=== PATIENT | male | born 1985 | race Caucasian/White ===

== ENCOUNTER 2020-06-22 23:49 | Inpatient (IN) | payer OTHER, SELFPAY ==
[2020-06-22 23:56] VITALS: BP 104/54; BP 120/66; PULSE 100; PULSE 89; RESP 20; TEMP 36.8; O2SAT 100; O2SAT 98; BMI 15.7
[2020-06-23] VITALS (22 sets, daily range): BP systolic 106–133; BP diastolic 59–76; PULSE 60–115; RESP 16–20; TEMP 36.4–37.2; O2SAT 97–100
--- NOTE | 2020-06-23 | ED.ABDPAIN ---
HPI - Abdominal Pain General Chief Complaint: Abdominal Pain Stated Complaint: abdominal pain Time Seen by Provider: 06/22/20 23:52 Source: patient and EMS Mode of arrival: EMS Limitations: no limitations History of Present Illness MD elicited complaint: abdominal pain Onset (ago): day(s) (3) Pain Consistency: constant Location: epigastric Severity: severe Quality: stabbing, fullness and sharp Radiation: none and epigastric Migration to: no migration Exacerbating factors: vomiting and movement Relieving factors: nothing Associated symptoms: nausea and vomiting Related Data Allergies Allergy/AdvReac Type Severity Reaction Status Date / Time No Known Allergies Allergy Unverified 03/06/20 17:11 Review of Systems Review of Systems Constitutional : No Weight loss, No Fever, No Chills ENT/Mouth : No sore throat, No Rhinorrhea Eyes: No Swelling, No Redness Cardiovascular : No Chest Pain, No SOB, NoEdema Respiratory : No Cough, No Sputum, No Wheezing Gastrointestinal : Positive Nausea, Positive Vomiting, no Diarrhea, positive abdominal Pain, No Hematochezia, No Melena Genitourinary : No Dysuria, No Urinary Frequency, No Hematuria, No Urgency Musculoskeletal : No joint pain, No Myalgias, No Joint Swelling Skin : No Skin Lesions, No rash Neuro : No Weakness, No Numbness, No Dizziness, No Headache Psych : No Anxiety/Panic, No Depression Heme/Lymph: No Bruising, No Lymphadenopathy Endocrine : No Polyuria, No Polydipsia All other systems reviewed and are negative. Physical Exam Vital Signs: Vital Signs: Last Vital Signs Temp 98.3 F 06/22/20 23:56 Pulse 89 06/22/20 23:56 Resp 20 06/22/20 23:56 BP 120/66 06/22/20 23:56 Pulse Ox 98 06/22/20 23:56 Body Mass Index 15.7 Appearance: Alert. Oriented X3. No acute distress. Anxious Eyes: Pupils equal, round and reactive to light. ENT: Pharynx normal. Neck: Normal inspection. Neck supple. CVS: Normal heart rate and rhythm. Pulses normal. Respiratory: No respiratory distress. Breath sounds normal. Abdomen: Soft and moderate epigastric ttp no rebound or guarding Skin: Skin warm and dry. Normal skin color. Normal skin turgor. Extremities: No lower extremity edema. No calf ttp Neuro: Oriented X 3. No motor deficit. No sensory deficit. Course Course Course Narrative: given his degree of pain will obtain CT scan to evaluate pancreas/GB signed out to Dr. Bolton pending CT scan results MDM - Abdominal Pain MDM Narrative Medical decision making narrative: 35 yo male with worsening epigastric pain for 3 days with n/v likely gastritis will need labs, IVF, IV medications for pain and nausea, dispo per results and findings. Lab Data Result diagrams: 06/23/20 00:06 06/23/20 00:06 Labs: Lab Results 06/23/20 06/23/20 06/23/20 Range/Units 00:06 00:06 00:06 WBC 10.2 (4.8-10.8) X10*3/uL RBC 4.51 L (4.60-5.80) X10*6/uL Hgb 14.5 (14.0-18.0) g/dl Hct 43.3 (42-52) % MCV 96.0 (80-98) fL MCH 32.2 (27.0-33.0) pg MCHC 33.5 (31.0-36.0) g/dl RDW 12.3 (11.0-16.0) % Plt Count 247 (160-400) X10*3/uL MPV 10.0 (9.4-12.4) fL Immature Gran % (Auto) 0.2 (0.0-0.4) % Neut % (Auto) 70.3 (45-73) % Lymph % (Auto) 23.2 (20-40) % [place] % (Auto) 4.8 (2-11) % Eos % (Auto) 1.2 (0-4) % Baso % (Auto) 0.3 (0-2) % Lymph # (Auto) 2.4 (1.2-4.9) X10*3/uL [place] # (Auto) 0.5 (0.1-1.2) X10*3/uL Eos # (Auto) 0.1 (0.0-0.4) X10*3/uL Baso # (Auto) 0.0 (0.0-0.2) X10*3/uL Abs Immat Gran (auto) 0.02 (0.00-0.03) X10*3/uL Absolute Neuts (auto) 7.1 (2.0-8.3) X10*3/uL Absolute Nucleated RBC 0.000 (0.0-0.012) X10*3/uL Nucleated RBC % (auto) 0.0 (0.0-0.2) /100WBC Hold Blue Top SEE NOTE Sodium 140 (135-145) mmol/L Potassium 3.5 (3.3-5.1) mmol/l Chloride 103 (96-108) mmol/L Carbon Dioxide 25 (22-29) mmol/L Anion Gap 16 (12-20) BUN 12 (9-16) mg/dL Creatinine 0.84 (0.5-1.4) mg/dL Estim Creat Clear Calc 103.8 Estimated GFR > 60 Random Glucose 88 (60-115) mg/dL Calcium 8.4 (8.4-10.2) mg/dL Magnesium 1.8 (1.6-2.6) mg/dL Total Bilirubin 0.5 (0.0-1.0) mg/dL Direct Bilirubin 0.3 (0.0-0.5) mg/dL AST 15 (5-37) U/L ALT 21 (0-40) U/L Alkaline Phosphatase 67 (39-117) U/L Total Protein 6.5 (6.5-8.0) g/dL Albumin 4.0 (3.5-5.0) g/dL Lipase 34 (8-78) U/L Ethyl Alcohol mg/dL 06/23/20 Range/Units 00:06 WBC (4.8-10.8) X10*3/uL RBC (4.60-5.80) X10*6/uL Hgb (14.0-18.0) g/dl Hct (42-52) % MCV (80-98) fL MCH (27.0-33.0) pg MCHC (31.0-36.0) g/dl RDW (11.0-16.0) % Plt Count (160-400) X10*3/uL MPV (9.4-12.4) fL Immature Gran % (Auto) (0.0-0.4) % Neut % (Auto) (45-73) % Lymph % (Auto) (20-40) % [place] % (Auto) (2-11) % Eos % (Auto) (0-4) % Baso % (Auto) (0-2) % Lymph # (Auto) (1.2-4.9) X10*3/uL [place] # (Auto) (0.1-1.2) X10*3/uL Eos # (Auto) (0.0-0.4) X10*3/uL Baso # (Auto) (0.0-0.2) X10*3/uL Abs Immat Gran (auto) (0.00-0.03) X10*3/uL Absolute Neuts (auto) (2.0-8.3) X10*3/uL Absolute Nucleated RBC (0.0-0.012) X10*3/uL Nucleated RBC % (auto) (0.0-0.2) /100WBC Hold Blue Top Sodium (135-145) mmol/L Potassium (3.3-5.1) mmol/l Chloride (96-108) mmol/L Carbon Dioxide (22-29) mmol/L Anion Gap (12-20) BUN (9-16) mg/dL Creatinine (0.5-1.4) mg/dL Estim Creat Clear Calc Estimated GFR Random Glucose (60-115) mg/dL Calcium (8.4-10.2) mg/dL Magnesium (1.6-2.6) mg/dL Total Bilirubin (0.0-1.0) mg/dL Direct Bilirubin (0.0-0.5) mg/dL AST (5-37) U/L ALT (0-40) U/L Alkaline Phosphatase (39-117) U/L Total Protein (6.5-8.0) g/dL Albumin (3.5-5.0) g/dL Lipase (8-78) U/L Ethyl Alcohol 105 mg/dL Discharge Plan Discharge Clinical Impression: Abdominal pain Qualifiers: Abdominal location: epigastric Qualified Code(s): R10.13 - Epigastric pain [facility] Past Medical History Attestation statement: The following information was validated with the patient. Medical History Kidney stone Social History Social History (Updated 06/23/20 @ 00:05 by Idania Kim DO) Smoking Status: Current some day smoker Substance Use Type: Marijuana Advance Directives: No Advance Directives Information Provided: No
[2020-06-23 00:22] LABS: Basophils Percent Auto 0.3 % (0-2); Eosinophils Absolute Auto 0.1 X10*3/uL (0.0-0.4); Eosinophils Percent Auto 1.2 % (0-4); Hematocrit 43.3 % (42-52); Hemoglobin 14.5 g/dl (14.0-18.0); Imm Gran Abs Auto 0.02 X10*3/uL (0.00-0.03); Imm Gran Pct Auto 0.2 % (0.0-0.4); Lymphocytes Absolute Auto 2.4 X10*3/uL (1.2-4.9); Lymphocytes Percent Auto 23.2 % (20-40); Mean Corpuscular HGB Conc 33.5 g/dl (31.0-36.0); Mean Corpuscular Hemoglobin 32.2 pg (27.0-33.0); Monocytes Absolute Auto 0.5 X10*3/uL (0.1-1.2); Monocytes Percent Auto 4.8 % (2-11); Neutrophils Absolute Auto 7.1 X10*3/uL (2.0-8.3); Neutrophils Percent Auto 70.3 % (45-73); Platelet Count 247 X10*3/uL (160-400); Red Blood Count 4.51 X10*6/uL (4.60-5.80); Red Cell Distribution Width 12.3 % (11.0-16.0); White Blood Count 10.2 X10*3/uL (4.8-10.8)
[2020-06-23 00:25] LABS: MANUAL DIFF FLAG NO
[2020-06-23] MEDS: 0.9 % Sodium Chloride 1,000 ML 999 ML IVCONT ×2 (00:25→03:39)
[2020-06-23] MEDS: Ketorolac Tromethamine 30 MG/ML VIAL IVPUSH (00:25)
[2020-06-23] MEDS: diphenhydrAMINE HCL 50 MG/ML VIAL 25 MG IVPUSH (00:26)
[2020-06-23] MEDS: Metoclopramide HCl 10 MG/2 ML VIAL IVPUSH (00:26)
--- NOTE | 2020-06-23 00:31 | CT_ITS ---
EXAMINATION: CT ABDOMEN AND PELVIS WITH CONTRAST CLINICAL INFORMATION: Epigastric pain COMPARISON: None TECHNIQUE: Multidetector volumetric images were obtained from the superior aspect of the liver through the pubic symphysis following administration 85 mL of Omnipaque 350 intravenous contrast. Sagittal and coronal reformatted images were obtained on the technologist's workstation. Oral contrast: No This CT examination was performed using dose optimization techniques as appropriate, variously including the following: *Automated exposure control *Adjustment of mA and/or kV according to patient size (this includes techniques or standardized protocols for targeted exams where dose is matched to indication/reason for exam; i.e. extremities or head) *Use of iterative reconstruction technique DLP: 342 mGy-cm FINDINGS: LUNG BASES: The visualized lung bases are unremarkable. LIVER, GALLBLADDER, AND BILIARY TREE: The liver is normal in size, shape, and attenuation. No focal hepatic lesion or biliary ductal dilatation is present. The gallbladder is unremarkable with no evidence of radiopaque gallstones, gallbladder wall thickening, or obvious pericholecystic inflammatory changes. PANCREAS: Unremarkable. SPLEEN: Unremarkable. ADRENAL GLANDS: Unremarkable. KIDNEYS AND URETERS: The kidneys are normal in size, shape, and attenuation. No hydronephrosis, hydroureter, or calculi seen. No perinephric stranding. BLADDER: Unremarkable. GASTROINTESTINAL TRACT: Lack of intra-abdominal fat limits evaluation of the bowel. The stomach is normally distended without wall thickening. Normal caliber small bowel. There is no obstruction. There is no colonic wall thickening or acute inflammatory change. The appendix is not definitively seen. Possible gas within normal appendix on series 3 image 66. There is a small amount of free intraperitoneal air noted. This is of uncertain etiology. Small volume of pelvic free fluid. ABDOMINAL WALL: No significant hernia is appreciated. LYMPH NODES: Normal. VASCULAR: Unremarkable. PELVIC VISCERA: The prostate and seminal vesicles are unremarkable. OSSEOUS STRUCTURES: Disc space narrowing of L4-L5 with vacuum disc phenomenon. No acute abnormality. CT/CT abdomen pelvis w con IMPRESSION: Small amount of free intraperitoneal air. This is of unclear etiology. Small volume of pelvic free fluid. This critical result was discussed with Dr. Bolton by telephone at 06/23/2020 2:31 AM and it was ascertained that the content and urgency of the report was understood at the time of direct communication.
[2020-06-23 00:52] LABS: Ethanol 105 mg/dL
[2020-06-23 00:54] LABS: Alanine Aminotransferase 21 U/L (0-40); Alkaline Phosphatase 67 U/L (39-117); Aspartate Amino Transferase 15 U/L (5-37); Bilirubin Direct 0.3 mg/dL (0.0-0.5); Bilirubin Total 0.5 mg/dL (0.0-1.0); Lipase 34 U/L (8-78); Magnesium 1.8 mg/dL (1.6-2.6); Total Protein 6.5 g/dL (6.5-8.0)
[2020-06-23 01:10] LABS: Anion Gap 16 (12-20); Blood Urea Nitrogen 12 mg/dL (9-16); Calcium 8.4 mg/dL (8.4-10.2); Carbon Dioxide 25 mmol/L (22-29); Chloride 103 mmol/L (96-108); Creatinine Clr Calc Pharmacy 103.8; Estimated Glomerular Filt Rate > 60; Glucose Random 88 mg/dL (60-115); Potassium 3.5 mmol/l (3.3-5.1); Sodium 140 mmol/L (135-145)
[2020-06-23] MEDS: iohexoL 350 MG/ML 100 ML INFUS..BTL 85 ML IV (01:50)
--- NOTE | 2020-06-23 02:38 | PC.NURSE ---
CALL OUT TO FLOOR SCRUBBER SERVICE TO DR LLANOS
--- NOTE | 2020-06-23 02:42 | ED.ABDPAIN ---
HPI - Abdominal Pain General Chief Complaint: Abdominal Pain Stated Complaint: abdominal pain Time Seen by Provider: 06/22/20 23:52 Source: patient and EMS Mode of arrival: EMS Limitations: no limitations History of Present Illness MD elicited complaint: abdominal pain Severity: severe Quality: stabbing, fullness and sharp Migration to: no migration Exacerbating factors: vomiting and movement Relieving factors: nothing Associated symptoms: nausea and vomiting Related Data Allergies Allergy/AdvReac Type Severity Reaction Status Date / Time No Known Allergies Allergy Unverified 03/06/20 17:11 Physical Exam Vital Signs: Vital Signs: Last Vital Signs Temp 98.3 F 06/22/20 23:56 Pulse 89 06/22/20 23:56 Resp 20 06/22/20 23:56 BP 120/66 06/22/20 23:56 Pulse Ox 98 06/22/20 23:56 Body Mass Index 15.7 Course Reevaluation(s) Reevaluation #1: Since [address] Real been called 2 times by the service no answer sent [employer] 2 times prior the message no response Time: 03:05 Reevaluation #2: Spoke to Dr. Hutchins will take the patient to OR for laparotomy to find out the cause of free air Time: 03:11 MDM - Abdominal Pain MDM Narrative Medical decision making narrative: Patient with abdominal pain for last 3 days with no history of peptic ulcer disease or any acute abdominal pathology pain got worse prior to arrival mostly localized in the upper abdomen labs are stable case discussed with radiologist CT scan showed small amount of free air etiology not very clear. Will call surgeon for evaluation Lab Data Result diagrams: 06/23/20 00:06 06/23/20 00:06 Labs: Lab Results 06/23/20 06/23/20 06/23/20 Range/Units 00:06 00:06 00:06 WBC 10.2 (4.8-10.8) X10*3/uL RBC 4.51 L (4.60-5.80) X10*6/uL Hgb 14.5 (14.0-18.0) g/dl Hct 43.3 (42-52) % MCV 96.0 (80-98) fL MCH 32.2 (27.0-33.0) pg MCHC 33.5 (31.0-36.0) g/dl RDW 12.3 (11.0-16.0) % Plt Count 247 (160-400) X10*3/uL MPV 10.0 (9.4-12.4) fL Immature Gran % (Auto) 0.2 (0.0-0.4) % Neut % (Auto) 70.3 (45-73) % Lymph % (Auto) 23.2 (20-40) % [place] % (Auto) 4.8 (2-11) % Eos % (Auto) 1.2 (0-4) % Baso % (Auto) 0.3 (0-2) % Lymph # (Auto) 2.4 (1.2-4.9) X10*3/uL [place] # (Auto) 0.5 (0.1-1.2) X10*3/uL Eos # (Auto) 0.1 (0.0-0.4) X10*3/uL Baso # (Auto) 0.0 (0.0-0.2) X10*3/uL Abs Immat Gran (auto) 0.02 (0.00-0.03) X10*3/uL Absolute Neuts (auto) 7.1 (2.0-8.3) X10*3/uL Absolute Nucleated RBC 0.000 (0.0-0.012) X10*3/uL Nucleated RBC % (auto) 0.0 (0.0-0.2) /100WBC Hold Blue Top SEE NOTE Sodium 140 (135-145) mmol/L Potassium 3.5 (3.3-5.1) mmol/l Chloride 103 (96-108) mmol/L Carbon Dioxide 25 (22-29) mmol/L Anion Gap 16 (12-20) BUN 12 (9-16) mg/dL Creatinine 0.84 (0.5-1.4) mg/dL Estim Creat Clear Calc 103.8 Estimated GFR > 60 Random Glucose 88 (60-115) mg/dL Calcium 8.4 (8.4-10.2) mg/dL Magnesium 1.8 (1.6-2.6) mg/dL Total Bilirubin 0.5 (0.0-1.0) mg/dL Direct Bilirubin 0.3 (0.0-0.5) mg/dL AST 15 (5-37) U/L ALT 21 (0-40) U/L Alkaline Phosphatase 67 (39-117) U/L Total Protein 6.5 (6.5-8.0) g/dL Albumin 4.0 (3.5-5.0) g/dL Lipase 34 (8-78) U/L Ethyl Alcohol mg/dL 06/23/20 Range/Units 00:06 WBC (4.8-10.8) X10*3/uL RBC (4.60-5.80) X10*6/uL Hgb (14.0-18.0) g/dl Hct (42-52) % MCV (80-98) fL MCH (27.0-33.0) pg MCHC (31.0-36.0) g/dl RDW (11.0-16.0) % Plt Count (160-400) X10*3/uL MPV (9.4-12.4) fL Immature Gran % (Auto) (0.0-0.4) % Neut % (Auto) (45-73) % Lymph % (Auto) (20-40) % [place] % (Auto) (2-11) % Eos % (Auto) (0-4) % Baso % (Auto) (0-2) % Lymph # (Auto) (1.2-4.9) X10*3/uL [place] # (Auto) (0.1-1.2) X10*3/uL Eos # (Auto) (0.0-0.4) X10*3/uL Baso # (Auto) (0.0-0.2) X10*3/uL Abs Immat Gran (auto) (0.00-0.03) X10*3/uL Absolute Neuts (auto) (2.0-8.3) X10*3/uL Absolute Nucleated RBC (0.0-0.012) X10*3/uL Nucleated RBC % (auto) (0.0-0.2) /100WBC Hold Blue Top Sodium (135-145) mmol/L Potassium (3.3-5.1) mmol/l Chloride (96-108) mmol/L Carbon Dioxide (22-29) mmol/L Anion Gap (12-20) BUN (9-16) mg/dL Creatinine (0.5-1.4) mg/dL Estim Creat Clear Calc Estimated GFR Random Glucose (60-115) mg/dL Calcium (8.4-10.2) mg/dL Magnesium (1.6-2.6) mg/dL Total Bilirubin (0.0-1.0) mg/dL Direct Bilirubin (0.0-0.5) mg/dL AST (5-37) U/L ALT (0-40) U/L Alkaline Phosphatase (39-117) U/L Total Protein (6.5-8.0) g/dL Albumin (3.5-5.0) g/dL Lipase (8-78) U/L Ethyl Alcohol 105 mg/dL Discharge Plan Discharge Clinical Impression: Abdominal pain Qualifiers: Abdominal location: epigastric Qualified Code(s): R10.13 - Epigastric pain [facility] Past Medical History Medical History Kidney stone Social History Social History (Updated 06/23/20 @ 00:05 by Idania Kim DO) Smoking Status: Current some day smoker Substance Use Type: Marijuana Advance Directives: No Advance Directives Information Provided: No
--- NOTE | 2020-06-23 02:57 | PC.NURSE ---
SECOND CALL TO HANDLING TECH SERVICE TO RICKY
--- NOTE | 2020-06-23 03:07 | PC.NURSE ---
[facility] CONNECT TO
[2020-06-23 03:34] LABS: Lactic Acid 1.4 mmol/L (0.5-2.0)
[2020-06-23] MEDS: Pantoprazole Sodium 40 MG/10 ML VIAL 80 MG IVPUSH (03:39)
[2020-06-23] MEDS: Piperacillin Sodium/Tazobactam 3.375 GM in 0.9 % Sodium Chloride 50 ML IV ×4 (03:39→18:10)
[2020-06-23 04:01] LABS: COVID-19 Test Negative (Negative)
--- NOTE | 2020-06-23 04:15 | HO.ANESPROP2 ---
[facility] Past Medical History Medical History Kidney stone Social History Social History Smoking Status: Current some day smoker Substance Use Type: Marijuana Advance Directives: No Advance Directives Information Provided: No Meds Allergies Allergy/AdvReac Type Severity Reaction Status Date / Time No Known Allergies Allergy Unverified 03/06/20 17:11 Exam Exam Date and Time: June 23, 2020 3785 Height,Weight and Vital Signs: Height 6 ft 5 in Weight 60.4 kg Last Vital Signs Temp 98.3 F 06/22/20 23:56 Pulse 89 06/22/20 23:56 Resp 20 06/22/20 23:56 BP 120/66 06/22/20 23:56 Pulse Ox 98 06/22/20 23:56 Pertinent Lab Results Pertinent Lab Results: Laboratory Tests 06/23/20 06/23/20 06/23/20 00:06 00:06 00:06 WBC 10.2 RBC 4.51 L Hgb 14.5 Hct 43.3 MCV 96.0 MCH 32.2 MCHC 33.5 RDW 12.3 Plt Count 247 MPV 10.0 Immature Gran % (Auto) 0.2 Neut % (Auto) 70.3 Lymph % (Auto) 23.2 [place] % (Auto) 4.8 Eos % (Auto) 1.2 Baso % (Auto) 0.3 Lymph # (Auto) 2.4 [place] # (Auto) 0.5 Eos # (Auto) 0.1 Baso # (Auto) 0.0 Abs Immat Gran (auto) 0.02 Absolute Neuts (auto) 7.1 Absolute Nucleated RBC 0.000 Nucleated RBC % (auto) 0.0 Hold Blue Top SEE NOTE Sodium 140 Potassium 3.5 Chloride 103 Carbon Dioxide 25 Anion Gap 16 BUN 12 Creatinine 0.84 Estim Creat Clear Calc 103.8 Estimated GFR > 60 Random Glucose 88 Lactic Acid Calcium 8.4 Magnesium 1.8 Total Bilirubin 0.5 Direct Bilirubin 0.3 AST 15 ALT 21 Alkaline Phosphatase 67 Total Protein 6.5 Albumin 4.0 Lipase 34 Ethyl Alcohol COVID-19 ([facility]) COVID-19 Clin Com Blood Type 06/23/20 06/23/20 06/23/20 00:06 03:07 03:26 WBC RBC Hgb Hct MCV MCH MCHC RDW Plt Count MPV Immature Gran % (Auto) Neut % (Auto) Lymph % (Auto) [place] % (Auto) Eos % (Auto) Baso % (Auto) Lymph # (Auto) [place] # (Auto) Eos # (Auto) Baso # (Auto) Abs Immat Gran (auto) Absolute Neuts (auto) Absolute Nucleated RBC Nucleated RBC % (auto) Hold Blue Top Sodium Potassium Chloride Carbon Dioxide Anion Gap BUN Creatinine Estim Creat Clear Calc Estimated GFR Random Glucose Lactic Acid 1.4 Calcium Magnesium Total Bilirubin Direct Bilirubin AST ALT Alkaline Phosphatase Total Protein Albumin Lipase Ethyl Alcohol 105 COVID-19 ([facility]) COVID-[employer] Com Blood Type O Positive 06/23/20 03:27 WBC RBC Hgb Hct MCV MCH MCHC RDW Plt Count MPV Immature Gran % (Auto) Neut % (Auto) Lymph % (Auto) [place] % (Auto) Eos % (Auto) Baso % (Auto) Lymph # (Auto) [place] # (Auto) Eos # (Auto) Baso # (Auto) Abs Immat Gran (auto) Absolute Neuts (auto) Absolute Nucleated RBC Nucleated RBC % (auto) Hold Blue Top Sodium Potassium Chloride Carbon Dioxide Anion Gap BUN Creatinine Estim Creat Clear Calc Estimated GFR Random Glucose Lactic Acid Calcium Magnesium Total Bilirubin Direct Bilirubin AST ALT Alkaline Phosphatase Total Protein Albumin Lipase Ethyl Alcohol COVID-19 ([facility]) Negative COVID-19 [employer] [facility] Com See Note Blood Type Airway Mallampati Class: II TM Dist: >3cm Neck ROM: Full
--- NOTE | 2020-06-23 04:40 | P.HPGS_ITS ---
History of Present Illness History of Present Illness Date of Service: 06/23/20 Chief complaint: abdominal pain Narrative: Xavier Adams is a 35 year old male who presented to the emergency department around 9 p.m. last evening with a 3 day history of epigastric pain that began mildly and was about a 2/10 on a pain scale. Patient reports that the pain was intermittent but slowly progressed over the course of the 3 days to a 10/10 pain which started yesterday. Patient came to the emergency department when the pain did not cease. Patient denies any previous history of abdominal pain of this sort. Last meal was around 9 p.m. and consisted of chicken and a beer. Patient reports drinking 3-4 beers per week but denies drinking in excess. Patient denies any recent trauma. He denies any nausea, vomiting, fever, chills, shortness of breath, or chest pain. Patient reports that the pain is worse with driving in the car going over bumps. Patient denies any radiation of pain. Pain is improved with a lying on the left side in the left lateral decubitus position. Pain is also improved by lying in the position. 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 He underwent CT scan abdomen and pelvis without p.o. contrast which showed a few bubbles of free air in the upper abdomen. On my visualization of the CT scan it appears that there is a few bubbles of free air in between the liver and the antrum tracking into the gallbladder fossa. There also a few bubbles of free air located in the anterior abdominal cavity anterior to the left and right lobe of the liver. There is no free air in the lower abdomen. There is no evidence of inflammation of the gallbladder or colitis or diverticulitis. Review of Systems Review of Systems: Yes all other systems are reviewed and are negative Constitutional: Constitutional: Denies chills, Denies daytime sleepiness, Denies difficulty sleeping, Denies excessive sweating, Denies fatigue, Denies fever(s), Denies headache(s), Denies night sweats, Denies snoring, Denies stops breathing during sleep and Denies weakness Eyes: Eyes: Denies blurry vision, Denies other visual disturbances and Denies requires corrective lenses ENT: Reports Normal hearing present, Denies bleeding gums, Denies dysphagia, Reports dizziness, Denies headache(s), Denies hearing loss, Denies sinus pain and Denies sore throat Cardiovascular: Cardiovascular: Denies chest pain, Denies chest pain at rest, Denies chest pain with activity, Denies syncope, Denies irregular heart rhythm, Denies leg edema, Denies lightheadedness, Denies dyspnea, Denies dyspnea on exertion and Denies orthopnea Respiratory: Respiratory: Denies chest congestion, Denies cough, Denies dyspnea, Denies dyspnea on exertion, Denies snoring and Denies wheezing Gastrointestinal: Gastrointestinal: Denies abdominal pain, Denies melena, Denies bloating, Denies constipation, Denies dysphagia, Denies heartburn, Denies diarrhea, Denies nausea and Denies vomiting Genitourinary: Genitourinary: Denies hematuria, Denies difficulty urinating and Denies nocturia Musculoskeletal: Musculoskeletal: Denies abnormal gait, Denies back pain, Denies deformity, Denies arthralgias, Denies joint swelling and Denies stiffness Integumentary/Breasts: Skin/Breast: Denies breast pain, Denies breast mass and Denies nipple discharge Neurologic: Reports Normal hearing present, Reports Abnormal speech present, Denies abnormal gait, Reports dizziness, Denies syncope, Denies headache(s), Denies seizure-like activity and Denies weakness Psychiatric: Psychiatric: Denies abnormal sleep pattern, Denies anxiety, Denies depression and Denies panic attacks Endocrine: Endocrine: Denies excessive sweating, Denies fatigue, Denies heat intolerance, Denies polyphagia, Denies polydipsia and Denies polyuria Hematologic/Lymphatic: Hematologic/Lymphatic: Denies easy bleeding and Denies easy bruising Allergic/Immunologic: Allergic/Immunologic: Denies wheezing PMFSH Past Medical History Medical History (Updated 06/23/20 @ 04:44 by Tiana Real MD) Adopted Kidney stone Family History Family History (Updated 06/23/20 @ 04:45 by Tiana Real MD) Mother No problems noted. Father No problems noted. Surgical History Surgical History (Updated 06/23/20 @ 04:44 by Tiana Real MD) History of ureter stent Social History Social History (Updated 06/23/20 @ 04:45 by Tiana Real MD) Alcohol intake: current Alcohol intake frequency: a few times a week Alcohol type: beer Smoking Status: Current every day smoker Cigarettes Per Day: 5 Substance Use Type: Marijuana Advance Directives: No Advance Directives Information Provided: No Meds Allergies Allergy/AdvReac Type Severity Reaction Status Date / Time No Known Allergies Allergy Unverified 06/23/20 04:46 Physical Exam Vital Signs: Vital Signs: Last Vital Signs Temp 98.3 F 06/22/20 23:56 Pulse 89 06/22/20 23:56 Resp 20 06/22/20 23:56 BP 120/66 06/22/20 23:56 Pulse Ox 98 06/22/20 23:56 Body Mass Index 15.7 Const: General: cooperative, healthy appearing, well developed and acute distress (Lying on the stretcher in left lateral decubitus position writhing) Nutritional Appearance: average body habitus Orientation/consciousness: patient oriented x3 Limitations: no limitations HENMT: Head: Yes normal to inspection and Yes normocephalic Ears: hearing grossly normal bilaterally General nose exam: Normal external nose present Mouth: Normal oral and palatal mucosa present Throat: Yes posterior oropharynx normal Eyes: General: appearance normal, both eyes and all related structures Eyelids: Yes eyelids normal Conjunctivae: conjunctivae normal Sclerae: sclerae normal EOM: EOMs intact bilaterally Neck: Neck: Yes normal visual inspection, Yes full ROM, Yes no lymphadenopathy and Yes trachea midline Thyroid: Thyroid normal Lymphatic: no lymphadenopa thy noted Resp: Effort & Inspection: normal respiratory effort Auscultation: clear to auscultation bilaterally Cardio: Jugular venous distension: no JVD Heart sounds: S1 normal heart sound present, S2 normal heart sound present, no click, no gallops, no murmurs and no rubs GI: Other: Abdomen is soft nondistended severely tender to palpation in the epigastrium with rebound and guarding. Rest of the abdominal exam is within normal limits. There are no hernias mass appreciated. Inspection: Yes normal to inspection, No distended, No incision and Yes other Palpation (GI): No hepatosplenomegaly present Skin: General skin exam: no rashes or lesions noted Lesions: no lesions Rashes: no rashes Trauma: no lacerations or abrasions Wounds: no wounds Hair: normal Nails: normal Neuro: General: patient oriented x3 Cranial nerves: Yes CN's II-XII intact bilaterally, Yes Bilaterally intact EOM present and Yes Normal hearing present Cognition (Neuro): normal cognition Speech: Abnormal speech present Motor exam (neuro): 5/5 motor strength present throughout and Motor abnormalities not present Extrem: General: Yes normal to inspection and Yes full ROM Right upper extremity: normal to inspection and full ROM Left upper extremity: normal to inspection and full ROM Psych: Appearance: grossly normal Mental Status: mental status grossly normal Speech and movement: Normal speech and movement present Affect: normal affect Attitude: cooperative Thought process: Normal thought process present Thought content: Normal thought content present Insight: Good insight present (Psych) Judgement: Good judgement present (Psych) Results Results Labs: Short CBC 06/23/20 Range/Units 00:06 WBC 10.2 (4.8-10.8) X10*3/uL Hgb 14.5 (14.0-18.0) g/dl Hct 43.3 (42-52) % Plt Count 247 (160-400) X10*3/uL BMP 06/23/20 00:06 Sodium 140 Potassium 3.5 Chloride 103 Carbon Dioxide 25 BUN 12 Creatinine 0.84 Calcium 8.4 Liver Function 06/23/20 Range/Units 00:06 Total Bilirubin 0.5 (0.0-1.0) mg/dL Direct Bilirubin 0.3 (0.0-0.5) mg/dL AST 15 (5-37) U/L ALT 21 (0-40) U/L Alkaline Phosphatase 67 (39-117) U/L Albumin 4.0 (3.5-5.0) g/dL Assessment and Plan (1) Perforated viscus: Status: Acute This is a 35-year-old gentleman with worsening abdominal pain in epigastrium up until last evening when it was severe. CT scan shows bubbles of free air in epigastrium that appear to be tracking from the antrum to the gallbladder fossa and anterior to the right lobe of liver. Patient is significantly tender in the epigastrium with palpation on physical examination. Given these findings and CT scan findings I believe that the patient likely has a perforated gastric ulcer. Patient will be taken to the operating room for diagnostic laparoscopy possible exploratory laparotomy with the likely plan to perform a laparoscopic Corky patch if we were able to find a perforated gastric ulcer. Patient is also aware that there may need to be a small bowel resection if there is an injury found small-bowel or a partial colectomy with colostomy if there is an injury found to the colon. Risks benefits and alternatives were discussed with the patient he agrees to proceed.
[2020-06-23] MEDS: Fluconazole in NaCl,Iso-Osm 100 MG in Container,Empty 0 ML 50 MG IV (06:00)
[2020-06-23] MEDS: Lactated Ringers 1,000 ML 100 ML IVCONT (06:00)
--- NOTE | 2020-06-23 06:49 | PM.OP ---
Brief Operative Note Date of Service: 06/23/20 Pre-op diagnosis: Perforated viscus Post-op diagnosis: other (Perforated pre-pyloric gastric ulcer) Procedure: Diagnostic laparoscopy, laparoscopic Corky patch repair of perforated pre-pyloric gastric ulcer with omentum, abdominal washout Implants: None Surgeon: Tiana Real MD Estimated blood loss (mL): 5 Pathology: none sent Condition: stable Disposition: PACU
[2020-06-23] MEDS: fentaNYL citrate/PF 100 MCG/2 ML VIAL 50 MCG IVPUSH ×2 (08:20→08:25)
[2020-06-23] MEDS: Dextrose 5 % and Lactated Ring 1,000 ML 125 ML IVCONT ×2 (09:46→18:11)
[2020-06-23] MEDS: 0.9 % Sodium Chloride Flush 3 ML SYRINGE IVFLUSH ×2 (13:12→16:30)
[2020-06-23] MEDS: Pantoprazole Sodium 40 MG/10 ML VIAL IVPUSH (16:30)
[2020-06-23] MEDS: Morphine Sulfate 2 MG/ML CARTRIDGE IVPUSH (18:18)
--- NOTE | 2020-06-23 18:25 | OP_ITS ---
SURGEON: Tiana Real MD PREOPERATIVE DIAGNOSIS: Perforated viscus. POSTOPERATIVE DIAGNOSIS: Perforated pre-pyloric gastric ulcer. PROCEDURE PERFORMED: Diagnostic laparoscopy with laparoscopic Corky patch repair of perforated pre-pyloric ulcer with omental fat and abdominal washout. ESTIMATED BLOOD LOSS: Less than 5 mL. COMPLICATIONS: None. ANESTHESIA: General endotracheal. ASSISTANTS: SPECIMENS: None. FINDINGS: About a 2-3 mm anterior perforation in the pre-pyloric region with associated fibrinous exudate of the falciform ligament. The gallbladder was patched over the perforation. There was a small amount of gastric contents in the right upper quadrant and left upper quadrant laterally. The rest of the intraabdominal anatomy was normal. CONDITION ON POSTPROCEDURE: Good. DESCRIPTION OF PROCEDURE: The patient was brought to the operating room, placed on operating table in supine position. Normal DVT prophylaxis was instituted and the patient received 3.375 g of Zosyn preoperatively. General anesthesia was induced. The abdomen was shaved with electric clippers and then prepped and draped in normal sterile fashion using ChloraPrep. Next, a safety time-out was performed. Next, a mixture of 1% lidocaine with epinephrine 0.25% Marcaine plain was used to anesthetize the planned incision site in the left upper quadrant. A #11 scalpel was used to make a 5 mm left upper quadrant transverse surgical incision through which a Veress needle was placed intraabdominal. Three pops were heard going to the fascia. A saline drop test was used to confirm that the Veress needle was intraabdominal. The abdominal cavity was then insufflated to 15 mmHg. Next, the Optiview technique was used to place a 5 mm port in the patient's left upper quadrant. A 5 mm 30 degree laparoscope was introduced into the abdomen. The abdominal cavity was surveyed. There was some fibrinous exudate on the falciform ligament and some fibrinous exudate at the antrum and the gallbladder appeared to be patch to the antrum. There was a small amount of free fluid that appeared to be gastric contents in the right upper quadrant just lateral to the liver edge. The rest of the intraabdominal anatomy appeared to be normal. I then performed a tap block on the right side of the abdomen using the aforementioned local anesthetic. I then placed a [employer] liver tractor at the subxiphoid position under direct vision and used to hold up the left lobe of the liver to the anterior abdominal wall. I secured this to the bed using liver retractor orantes. I then placed a 5 mm port in the patient's right upper quadrant under direct vision. We placed a 5 mm port in the supraumbilical region as well under direct vision. I then performed a tap block on the left side of the abdomen. We placed the patient in reverse Trendelenburg positioning. I used 2 graspers to remove the gallbladder and was able to visualize a 2-3 mm small anterior perforation in the pre-pyloric region. We then used a 2-0 silk to attempt to close the perforation, but the tissue was very friable and the suture pulled through. We then found a small amount of omentum that was attached to the transverse colon, brought this omentum up and waited over the perforation. We then placed a suture of 2-0 silk superiorly in the pre-pyloric region. We placed the omental fat over the perforation. We placed an imbricating suture on the left and right side of the omental fat and used a laparoscopic knot pusher to tie the suture down to the antrum as well as the proximal duodenum thereby keeping the fat in place. We then placed an additional 2 sutures, 1 inferior to that and 1 at the very bottom of that so that the omentum was lying completely covering the previous perforation with imbricating sutures allowing the fat to be tied down to the pre-pyloric region transversely. We evaluated this area. There was no evidence of perforation visible. We then suctioned the fluid free from the left and right upper quadrant. There was no additional fluid seen in the abdomen. We let down the [facility] liver tractor and we removed the left upper quadrant port. We desufflated the abdomen through the supraumbilical port and removed the last port. We reapproximated all skin incisions with 4-0 Monocryl subcuticular stitch. We cleaned and dried the skin and applied Dermabond to all skin incisions. All counts were correct at the end of the case. There were no complications. The patient was awakened in stable condition prior to extubation and transferred to recovery room. 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 MD JOHN Brito/LYNDAL / [id number]
[2020-06-23] MEDS: Nicotine 7 MG PATCH.TD24 TRANSDERMA (19:55)
[2020-06-23] MEDS: Morphine Sulfate 4 MG/ML CARTRIDGE IVPUSH (21:33)
[2020-06-24] MEDS: 0.9 % Sodium Chloride Flush 3 ML SYRINGE IVFLUSH ×3 (00:01→15:01)
[2020-06-24] MEDS: Piperacillin Sodium/Tazobactam 3.375 GM in 0.9 % Sodium Chloride 50 ML IV ×4 (00:01→19:33)
[2020-06-24] MEDS: Morphine Sulfate 4 MG/ML CARTRIDGE IVPUSH ×3 (01:32→09:47)
[2020-06-24 03:22] VITALS: BP 113/63; PULSE 69; RESP 20; TEMP 36.4; O2SAT 97
[2020-06-24] MEDS: Dextrose 5 % and Lactated Ring 1,000 ML 125 ML IVCONT (03:35)
[2020-06-24] MEDS: Pantoprazole Sodium 40 MG/10 ML VIAL IVPUSH ×2 (06:34→19:33)
[2020-06-24] MEDS: Fluconazole in NaCl,Iso-Osm 100 MG in Container,Empty 0 ML 50 MG IV (06:38)
[2020-06-24 07:00] LABS: Hematocrit 35.9 % (42-52); Hemoglobin 11.9 g/dl (14.0-18.0); Mean Corpuscular HGB Conc 33.1 g/dl (31.0-36.0); Mean Corpuscular Volume 96.5 fL (80-98); Mean Platelet Volume 11.1 fL (9.4-12.4); Platelet Count 206 X10*3/uL (160-400); Red Blood Count 3.72 X10*6/uL (4.60-5.80); Red Cell Distribution Width 12.1 % (11.0-16.0); White Blood Count 16.6 X10*3/uL (4.8-10.8)
--- NOTE | 2020-06-24 07:00 | FL_ITS ---
EXAMINATION: XR GI SERIES CLINICAL INFORMATION: History of perforated gastric ulcer COMPARISON: Previous CT of the abdomen and pelvis 06/23/2020 TECHNIQUE: Fire Pot Operator film was performed. Patient drank dilute Gastrografin in the upright position. 15 minute supine overhead film was obtained. FINDINGS: No free air is seen. No dilated loops of bowel or stomach dilatation is seen. No leak is seen. There was delayed gastric emptying immediately following drinking of Gastrografin. 15 minute supine film demonstrates oral contrast in the small bowel without evidence of obstruction. FLUOROSCOPY TIME: 0.6 minutes DOSE AREA PRODUCT: 4 castro per centimeter squared. Total dose 14 mgy. 14 saved fluoroscopic images. FL/FL upper GI series IMPRESSION: No leak is seen. Delayed gastric emptying.
[2020-06-24 07:13] LABS: Anion Gap 12 (12-20); Blood Urea Nitrogen 13 mg/dL (9-16); Carbon Dioxide 24 mmol/L (22-29); Chloride 106 mmol/L (96-108); Creatinine Clr Calc Pharmacy 113.3; Estimated Glomerular Filt Rate > 60; Glucose Random 125 mg/dL (60-115); Potassium 4.1 mmol/l (3.3-5.1); Sodium 138 mmol/L (135-145)
[2020-06-24 07:18] VITALS: BP 99/56; PULSE 70; RESP 18; TEMP 36.5; O2SAT 99
--- NOTE | 2020-06-24 07:37 | PM.PNGS ---
Subjective Subjective Date of Service: 06/24/20 <Tena Alexander PA-C - Last Filed: 06/24/20 10:36> 06/24/20 <Tiana Real MD - Last Filed: 06/24/20 11:59> Interval history: C/o incisional pain and RUQ/right shoulder pain. Morphine helping but wears off quickly. Has been OOB and ambulating. Denies nausea. Denies flatus. Feels hungry and asking when he can leave. <Tena Alexander PA-C - Last Filed: 06/24/20 10:36> Patient seen and examined. Patient doing well pain is well controlled with morphine IV. Patient has been NPO and underwent a upper GI study this morning that showed no evidence of obstruction or leak or free air. Patient is interested in eating and wants to go home. Vital signs are within normal limits. Patient has been up and ambulating within his room. He is using the incentive spirometer and is able to get up to 1500 tidal volumes. <Tiana Real MD - Last Filed: 06/24/20 11:59> Physical Exam Vital Signs: Vital Signs: Last Vital Signs Temp 97.7 F 06/24/20 07:18 Pulse 70 06/24/20 07:18 Resp 18 06/24/20 07:18 BP 99/56 L 06/24/20 07:18 Pulse Ox 99 06/24/20 07:18 Body Mass Index 15.7 <NATALIIA Prater Last Filed: 06/24/20 10:36> Const: General: healthy appearing, comfortable, no acute distress and alert <NATALIIA Prater Last Filed: 06/24/20 10:36> Orientation/consciousness: patient oriented x3 <NATALIIA Prater Last Filed: 06/24/20 10:36> Eyes: Sclerae: sclerae normal <NATALIIA Prater Last Filed: 06/24/20 10:36> Resp: Effort & Inspection: normal respiratory effort <NATALIIA Prater Last Filed: 06/24/20 10:36> Cardio: Rate: regular rate <NATALIIA Prater Filed: 06/24/20 10:36> GI: Inspection: No distended and Yes incision (clean) <Tena Alexander PA-C Marry Last Filed: 06/24/20 10:36> Palpation (GI): Soft to palpation, Tenderness to palpation present (GI) (moderate, incisional), no guarding, not rigid and No Rebound tenderness present <Tena Alexander PA-C Marry Last Filed: 06/24/20 10:36> Auscultation: Hypoactive bowel sounds present <Tena Alexander PA-C Marry Last Filed: 06/24/20 10:36> Skin: General skin exam: no rashes or lesions noted <Tena Alexander PA-C Marry Filed: 06/24/20 10:36> Neuro: General: patient oriented x3 <Tena Alexander PA-C Marry Filed: 06/24/20 10:36> Extrem: General: Yes no clubbing, cyanosis or edema <Tena Alexander PA-C Marry Last Filed: 06/24/20 10:36> Progress Note: A&P Assessment and plan (1) Perforated viscus: Status: Acute <Tena Alexander PA-C Marry Filed: 06/24/20 10:36> (2) Perforated gastric ulcer: Problem details: POD #2 s/p diagnostic laparoscopy, laparoscopic Corky patch repair of perforated pre-pyloric gastric ulcer with omentum, abdominal washout <Tena Alexander PA-C Marry Last Filed: 06/24/20 10:36> Status: Acute <Tena Alexander PA-C Marry Last Filed: 06/24/20 10:36> Assessment and Plan: Doing fairly well post op. Comfortable but c/o referred pain. VSS. Abd exam benign with appropriate post op tenderness, incisions clean. Awaiting upper GI series today. Cont IV zosyn, IVF, IV diflucan, IV protonix. Cont NPO for now, advance to clears if upper GI ok. Encouraged to ambulate and IS use for referred pain. Will add ofirmev for pain. <Tena Aelxander PA-C - Last Filed: 06/24/20 10:36> Patient doing well on postoperative day 1. Status post laparoscopic Corky patch repair of perforated pre-pyloric gastric ulcer. Upper GI shows no evidence of leak. Patient will be advanced to clear liquid diet. If he is tolerating clear liquids he will be advanced to regular diet. We will obtain H pylori breath test. Continue Diflucan Zosyn and Protonix. Patient encouraged to continue using incentive spirometer and ambulate. <Tiana Real MD - Last Filed: 06/24/20 11:59> Fall Risk Details Current Medications: Current Medications Generic Name Dose Route Start Last Admin Trade Name Freq PRN Reason Stop Dose Admin Acetaminophen 650 mg 06/23/20 04:59 Acetaminophen 325 Mg Tablet PO Q4H PRN Fever Acetaminophen 650 mg 06/23/20 04:59 Acetaminophen Supp 650 Mg Supp.Rect NH Q6H PRN Fever Fentanyl 50 mcg 06/23/20 04:17 06/23/20 08:25 Fentanyl Citrate/Pf 100 Mcg/2 Ml Vial IVPUSH 50 mcg Q5M PRN Administration Pain, Severe (Pain Scale 7-10) Lactated Ringer's 1,000 mls @ 100 mls/hr 06/23/20 04:30 06/24/20 01:31 Lr IVCONT Not Given .Q10H JONH Dextrose/Lactated Ringer's 1,000 mls @ 125 mls/hr 06/23/20 05:00 06/24/20 06:39 D5lr IVCONT 0 mls/hr .Q8H JONH Infusion Piperacillin Sod/Tazobactam 50 mls @ 100 mls/hr 06/23/20 06:00 06/24/20 06:27 Sod 3.375 gm/ Sodium Chloride IV Infused Q6H JONH Infusion Fluconazole 100 mg/ IV 50 mls @ 50 mls/hr 06/23/20 06:00 06/24/20 06:38 Miscellaneous Supplies IV 50 mls/hr Q24H JONH Administration Morphine Sulfate 2 mg 06/23/20 04:59 06/23/20 18:18 Morphine Sulfate 2 Mg/Ml Cartridge IVPUSH 2 mg Q3H PRN Administration Pain, Moderate (Pain Scale 4-6 Morphine Sulfate 4 mg 06/23/20 04:59 06/24/20 05:28 Morphine Sulfate 4 Mg/Ml Cartridge IVPUSH 4 mg Q3H PRN Administration Pain, Severe (Pain Scale 7-10) Nicotine 7 mg 06/23/20 21:00 06/23/20 19:55 Nicotine 7 Mg Patch.Td24 TRANSDERMA 7 mg DAILY JONH Administration Ondansetron HCl 4 mg 06/23/20 04:17 Ondansetron Hcl 4 Mg/2 Ml Vial IVPUSH ONCE PRN Nausea and Vomiting Ondansetron HCl 4 mg 06/23/20 04:59 Ondansetron Hcl 4 Mg/2 Ml Vial IVPUSH Q4H PRN Nausea Pantoprazole Sodium 40 mg 06/23/20 16:30 06/24/20 06:34 Pantoprazole Sodium 40 Mg/10 Ml Vial IVPUSH 40 mg BID@0630,1630 JONH Administration Sodium Chloride 3 ml 06/23/20 08:00 06/24/20 00:01 0.9 % Sodium Chloride Flush 3 Ml Syringe IVFLUSH 3 ml QSHIFT JONH Administration <Tena Alexander PA-C - Last Filed: 06/24/20 10:36> Time Spent With Patient Time: Total time spent is greater than 50% in coordination of care (as documented) at patient's floor/unit and/or counseling patient: <Tena Alexander PA-C - Last Filed: 06/24/20 10:36> Time with patient: 15 - 24 minutes <Tena Alexander PA-C - Last Filed: 06/24/20 10:36> less than 15 minutes <Tiana Real MD - Last Filed: 06/24/20 11:59>
[2020-06-24] MEDS: Nicotine 7 MG PATCH.TD24 TRANSDERMA (07:59)
[2020-06-24 11:34] VITALS: BP 110/72; PULSE 79; RESP 18; TEMP 37.2; O2SAT 99
--- NOTE | 2020-06-24 12:21 | MHC.CLN ---
ADMISSION HT INACCURATE 6'5 CORRECTED TO 65 (5'5 ) CORRECTED BMI 22-WNL 98% IBW INDICATES ADEQUATE WT FOR HT
--- NOTE | 2020-06-24 13:47 | HO.POSTANES ---
Post Anesthesia Evaluation Post Anesthesia Evaluation Vital Signs: Vital Signs Temp Pulse Resp BP Pulse Ox 06/24/20 11:34 98.9 F 79 18 110/72 99 06/24/20 07:18 97.7 F 70 18 99/56 L 99 06/24/20 03:22 97.6 F 69 20 113/63 97 Anesthesia: General Mental Status: Awake Pain Control: Satisfactory Nausea/Vomiting: None Hydration: Adequate Anesthesia-Related Issues: No Anes. Related Issues
--- NOTE | 2020-06-24 14:21 | MHC.CM.PN ---
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 PATIENT HAS TRANSPORT HOME AT DISCHARGE. HE USES [address] [place] [address] FOR HIS PCP NEEDS. UPDATE MADE IN [employer] FOLLOWING FOR ANY DISCHARGE NEEDS.
[2020-06-24] MEDS: oxyCODONE HCl Immed Release 5 MG TABLET 10 MG PO ×3 (15:01→23:58)
[2020-06-24 15:36] VITALS: BP 112/70; PULSE 64; RESP 17; TEMP 37.2; O2SAT 98
[2020-06-24 19:19] VITALS: BP 109/64; PULSE 72; RESP 18; TEMP 36.5; O2SAT 100
[2020-06-24 23:32] VITALS: BP 107/66; PULSE 78; RESP 16; TEMP 36.5; O2SAT 98
[2020-06-25] MEDS: Piperacillin Sodium/Tazobactam 3.375 GM in 0.9 % Sodium Chloride 50 ML IV ×2 (00:02→06:04)
[2020-06-25] MEDS: 0.9 % Sodium Chloride Flush 3 ML SYRINGE IVFLUSH ×2 (00:02→09:02)
[2020-06-25 04:00] VITALS: BP 117/63; PULSE 56; RESP 16; TEMP 36.4; O2SAT 97
[2020-06-25] MEDS: Pantoprazole Sodium 40 MG/10 ML VIAL IVPUSH (06:04)
[2020-06-25 06:21] LABS: MANUAL DIFF FLAG NO
[2020-06-25] MEDS: Fluconazole in NaCl,Iso-Osm 100 MG in Container,Empty 0 ML 50 MG IV (06:36)
[2020-06-25 06:48] LABS: Basophils Percent Auto 0.1 % (0-2); Eosinophils Absolute Auto 0.1 X10*3/uL (0.0-0.4); Eosinophils Percent Auto 0.7 % (0-4); Hematocrit 37.7 % (42-52); Hemoglobin 12.2 g/dl (14.0-18.0); Imm Gran Abs Auto 0.03 X10*3/uL (0.00-0.03); Imm Gran Pct Auto 0.3 % (0.0-0.4); Lymphocytes Absolute Auto 2.5 X10*3/uL (1.2-4.9); Lymphocytes Percent Auto 22.7 % (20-40); Mean Corpuscular HGB Conc 32.4 g/dl (31.0-36.0); Mean Corpuscular Hemoglobin 31.7 pg (27.0-33.0); Mean Corpuscular Volume 97.9 fL (80-98); Mean Platelet Volume 10.9 fL (9.4-12.4); Monocytes Absolute Auto 0.7 X10*3/uL (0.1-1.2); Monocytes Percent Auto 6.1 % (2-11); Neutrophils Absolute Auto 7.8 X10*3/uL (2.0-8.3); Neutrophils Percent Auto 70.1 % (45-73); Platelet Count 207 X10*3/uL (160-400); Red Blood Count 3.85 X10*6/uL (4.60-5.80); Red Cell Distribution Width 12.2 % (11.0-16.0); White Blood Count 11.1 X10*3/uL (4.8-10.8)
[2020-06-25 07:40] VITALS: BP 123/77; PULSE 86; RESP 18; TEMP 36.7; O2SAT 100
--- NOTE | 2020-06-25 08:56 | PC.NURSE ---
Dr. martins ordered a H-Plyorid Breath test, called serology because test was not done yesterday, serology stated that the test is not performed in the hospital, has to be done in the doctors office. Dr. Martins was tiger texted.
[2020-06-25] MEDS: oxyCODONE HCl Immed Release 5 MG TABLET 10 MG PO (09:46)
--- NOTE | 2020-06-25 10:06 | PM.PNGS ---
Subjective Subjective Date of Service: 06/25/20 Interval history: Patient reports feeling well. He is tolerating regular diet and pain is well controlled. He has been up ambulating. He is passing some gas but has not had a bowel movement. Vital signs are within normal limits. Physical Exam Vital Signs: Vital Signs: Last Vital Signs Temp 98.0 F 06/25/20 07:40 Pulse 86 06/25/20 07:40 Resp 18 06/25/20 07:40 BP 123/77 06/25/20 07:40 Pulse Ox 100 06/25/20 07:40 Body Mass Index 15.7 Const: General: cooperative, healthy appearing, comfortable, no acute distress and well developed GI: Inspection: Yes normal to inspection, No Abdominal wall edema, No distended and Yes incision (Laparoscopic incisions clean dry intact with Dermabond in place ) Palpation (GI): Soft to palpation, not firm, Tenderness to palpation present (GI) (Minimal incisional), no guarding, not rigid and hepatosplenomegaly present Skin: General skin exam: no rashes or lesions noted Lesions: no lesions Rashes: no rashes Extrem: General: Yes normal to inspection, Yes full ROM, Yes no clubbing, cyanosis or edema, Yes no pedal edema and Yes no calf tenderness Progress Note: A&P Assessment and plan (1) Status post gastric surgery: Problem details: Laparoscopic Corky patch repair perforated pre-pyloric ulcer Status: Acute Assessment and Plan: This is a 35-year-old gentleman on postoperative day 2. Status post laparoscopic Corky patch repair of perforated pre-pyloric ulcer. Patient is tolerating regular diet and has good pain control. Patient still needs to have an H pylori study done before he can be discharged home. Patient will be discharged home once the H pylori study is done and will be discharged home on 5 more days of Diflucan, Protonix for several more months, oxycodone, and Colace. (2) Perforated gastric ulcer: Problem details: POD #2 s/p diagnostic laparoscopy, laparoscopic Corky patch repair of perforated pre-pyloric gastric ulcer with omentum, abdominal washout Status: Acute Fall Risk Details Current Medications: Current Medications Generic Name Dose Route Start Last Admin Trade Name Freq PRN Reason Stop Dose Admin Dextrose/Lactated Ringer's 1,000 mls @ 125 mls/hr 06/23/20 05:00 06/25/20 04:49 [id number] IVCONT Not Given .Q8H JONH Piperacillin Sod/Tazobactam 50 mls @ 100 mls/hr 06/23/20 06:00 06/25/20 06:38 Sod 3.375 gm/ Sodium Chloride IV Infused Q6H JONH Infusion Fluconazole 100 mg/ IV 50 mls @ 50 mls/hr 06/23/20 06:00 06/25/20 07:38 Miscellaneous Supplies IV Infused Q24H JONH Infusion Acetaminophen 1,000 mg in 100 mls @ 400 mls/hr 06/24/20 08:00 06/25/20 07:38 Ofirmev IV Not Given Q6H JONH Morphine Sulfate 2 mg 06/23/20 04:59 06/23/20 18:18 Morphine Sulfate 2 Mg/Ml Cartridge IVPUSH 2 mg Q3H PRN Administration Pain, Moderate (Pain Scale 4-6 Morphine Sulfate 4 mg 06/23/20 04:59 06/24/20 09:47 Morphine Sulfate 4 Mg/Ml Cartridge IVPUSH 4 mg Q3H PRN Administration Pain, Severe (Pain Scale 7-10) Nicotine 7 mg 06/23/20 21:00 06/25/20 09:02 Nicotine 7 Mg Patch.Td24 TRANSDERMA Not Given DAILY [facility] Ondansetron HCl 4 mg 06/23/20 04:17 Ondansetron Hcl 4 Mg/2 Ml Vial IVPUSH ONCE PRN Nausea and Vomiting Ondansetron HCl 4 mg 06/23/20 04:59 Ondansetron Hcl 4 Mg/2 Ml Vial IVPUSH Q4H PRN Nausea Oxycodone HCl 5 mg 06/24/20 11:53 Oxycodone Hcl Immed Release 5 Mg Tablet PO Q3H PRN Pain, Moderate (Pain Scale 4-6 Oxycodone HCl 10 mg 06/24/20 11:53 06/25/20 09:46 Oxycodone Hcl Immed Release 5 Mg Tablet PO 10 mg Q3H PRN Administration Pain, Severe (Pain Scale 7-10) Pantoprazole Sodium 40 mg 06/23/20 16:30 06/25/20 06:04 Pantoprazole Sodium 40 Mg/10 Ml Vial IVPUSH 40 mg BID@0630,1630 [facility] Administration Sodium Chloride 3 ml 06/23/20 08:00 06/25/20 09:02 0.9 % Sodium Chloride Flush 3 Ml Syringe IVFLUSH 3 ml QSHIFT JONH Administration Time Spent With Patient Time: Total time spent is greater than 50% in coordination of care (as documented) at patient's floor/unit and/or counseling patient: Time with patient: less than 15 minutes
--- NOTE | 2020-06-25 10:55 | MHC.CM.PN ---
Addendum entered by Taniya Orourke RN 06/25/20 11:43: PT DISCHARGING HOME SELF-CARE, PT HAS TRANSPORTATION, PER LAB H-PYLORI BREATH TEST NEEDS TO BE DONE IN 'S OFFICE, SURGICAL NOTIFIED VIA TIGER TEXT. Original Note: PER SURGICAL PT NEEDS HPYLORI STUDIES PREVIOUS TO DISCHARGE, ORDERED FOR TODAY. DISCHARGE PLAN HOME SELF-CARE W/ FOLLOW-UP W/SHADE
--- NOTE | 2020-06-25 11:17 | PM.DS ---
DS: Providers Provider Date of Service: 06/25/20 Date of admission: 06/23/20 07:51 Date of discharge: 06/25/20 Primary care physician: Unknown Physician Admitting clinician: Tiana Real Attending physician on admission: Tiana Real Attending physician on discharge: Tiana Real Discharging clinician: Tiana Real DS: Diagnosis Discharge Diagnosis (1) Status post gastric surgery: Status: Acute Problem details: Laparoscopic Corky patch repair perforated pre-pyloric ulcer (2) Perforated gastric ulcer: Status: Acute Problem details: POD #2 s/p diagnostic laparoscopy, laparoscopic Corky patch repair of perforated pre-pyloric gastric ulcer with omentum, abdominal washout DS: Medications Discharge Medications Home Medications: Previous Rx's Medication Instructions Recorded amoxicillin-pot clavulanate 1 tab PO BID #14 tab 06/24/20 [Augmentin] omeprazole 40 mg PO DAILY #30 cap 06/24/20 docusate sodium [Colace] 100 mg PO BID #30 cap 06/25/20 nicotine 7 mg TRANSDERMAL DAILY 28 Days #28 06/25/20 ea oxycodone 5 mg PO Q3H PRN 7 Days #30 tab 06/25/20 DS: Summary Hospital Course Hospital Course: This is a 35-year-old gentleman who was admitted to the emergency department on 06/23/2020 with free air on CT scan and severe epigastric abdominal pain. CT scan showed bubbles of free air in the gallbladder fossa as well as emanating from the distal portion of the stomach and lying in between the stomach and the left lobe of the liver. There are also some free bubbles of air above under the diaphragm. Given this a working diagnosis of likely perforated gastric ulcer was made as the patient has had some alcohol in the days leading up to these abdominal pain. Patient was admitted to surgical service and taken to the operating room urgently for a diagnostic laparoscopy where a small perforation was found in the pre-pyloric region. A laparoscopic Corky patch repair of this perforated gastric ulcer was performed with abdominal washout. Patient tolerated procedure well and was sent to the surgical floor overnight. Patient was kept NPO he remains on Zosyn and Diflucan and proton pump inhibitor. The following day the patient had an upper GI study which showed no evidence of free air or leak after repair. Patient also was noted to have normal emptying from the stomach on the upper GI. Patient was sent back to the surgical floor was started on a clear liquid diet advanced to p.o. pain medications which he tolerated well. That afternoon the patient was advanced to a regular diet which she tolerated well he was up and ambulating. On postoperative day 2. The patient was noted to be tolerating regular diet and having good pain control with p.o. pain medications. A water for H pylori testing was made but the test cannot be done while the patient is inpatient. Patient will have this done in my office when he follows up as an outpatient. A decision was made to discharge the patient home. Time spent discussing smoking cessation with patient: 3 to 10 minutes Status at Discharge Cognitive/behavioral status at discharge: Baseline in normal Functional status at discharge: independent ambulation Overall status at discharge: patient is back to baseline Time Spent with Patient Time attestation: Total time spent providing and/or coordinating discharge services: Discharge coordination time: Less than 30 minutes Physical Exam Vital Signs: Vital Signs: Last Vital Signs Temp 98.0 F 06/25/20 07:40 Pulse 86 06/25/20 07:40 Resp 18 06/25/20 07:40 BP 123/77 06/25/20 07:40 Pulse Ox 100 06/25/20 07:40 Body Mass Index 15.7 Const: General: cooperative, healthy appearing, comfortable, no acute distress, well developed, alert and awake; No acute distress or anxious GI: Inspection: Yes normal to inspection, No Abdominal wall edema, No distended and Yes incision (Clean dry intact with Dermabond in place) Palpation (GI): Soft to palpation, not firm, Tenderness to palpation present (GI) (Mild incisional tenderness which is appropriate), no guarding, not rigid and no hepatosplenomegaly Extrem: General: Yes normal to inspection, Yes full ROM, Yes no clubbing, cyanosis or edema, Yes no pedal edema and Yes no calf tenderness DS: Data Data Completed and Pending Labs on day of discharge: 06/22/20 23:45 0.9 % Sodium Chloride [Ns] 1,000 ml IVCONT 999 mls/hr 06/22/20 23:58 Complete Blood Count Auto Diff Stat Ketorolac Tromethamine [Toradol] 30 mg IVPUSH ONCE ONE Metoclopramide HCl [Reglan] 10 mg IVPUSH ONCE ONE diphenhydrAMINE HCL [Benadryl] 25 mg IVPUSH ONCE ONE 06/22/20 23:59 Ethanol Stat Hold Lt Blue - Possible Coag Stat Lipase Stat Liver Panel Stat Magnesium Stat 06/23/20 00:06 Basic Metabolic Panel Stat 06/23/20 00:31 CT abdomen pelvis w con Stat 06/23/20 00:43 Add Laboratory Test Stat 06/23/20 01:50 iohexoL 350 MG/ML [Omnipaque 350 MG/ML] 85 ml IV ONCE ONE 06/23/20 02:38 Pantoprazole Sodium [Protonix] 80 mg IVPUSH ONCE ONE 06/23/20 02:40 Piperacillin Sodium/Tazobactam [Zosyn] 3.375 gm 0.9 % Sodium Chloride [Ns] 50 ml IV ONCE 06/23/20 02:45 0.9 % Sodium Chloride [Ns] 1,000 ml IVCONT 999 mls/hr 06/23/20 03:07 Lactic Acid Stat 06/23/20 03:26 Type and Screen Stat 06/23/20 03:27 COVID-19 ID NOW ([facility]) Stat 06/23/20 03:34 Piperacillin Sodium/Tazobactam [Zosyn] 3.375 gm IV .STK-MED ONE 06/23/20 04:07 Ketamine HCl/NS 50 mg IVPUSH .STK-MED ONE Midazolam HCl/PF [Versed] 2 mg .ROUTE .STK-MED ONE fentaNYL citrate/PF [Sublimaze] 50 mcg .ROUTE .STK-MED ONE 06/23/20 04:08 Lidocaine HCl 2 % MPF [Xylocaine 2 % MPF] 5 ml .ROUTE .STK-MED ONE Rocuronium [place] [Zemuron] 100 mg IV .STK-MED ONE Sugammadex Sodium [[place]] 200 mg IVPUSH .STK-MED ONE dexAMETHasone sod phosphate [Decadron] 4 mg .ROUTE .STK-MED ONE ondansetron HCL [Zofran] 4 mg .ROUTE .STK-MED ONE propofoL [Diprivan] 200 mg IVPUSH .STK-MED ONE 06/23/20 04:13 Bupivacaine MPF 0.25 % [Sensorcaine-MPF 0.25% 10 ML] 10 ml .ROUTE .STK-MED ONE Bupivacaine MPF 0.5 % [Sensorcaine MPF 0.5% 30 ML] 30 ml .ROUTE .STK-MED ONE Lidocaine HCl 1%/Epi 1:100,000 [Xylocaine 1 %-Epi 1:100,000] 20 ml .ROUTE .STK-MED ONE Lidocaine HCl 2%/Epi 1:100,000 [Xylocaine 2 %-Epi 1:100,000] 20 ml .ROUTE .STK-MED ONE 06/23/20 04:14 Bupivacaine MPF 0.75 % w/EPI [Sensorcaine MPF 0.75%/EPI 1:200,000] 30 ml .ROUTE .STK-MED ONE 06/23/20 04:17 Continuous pulse oximetry CONT Vital Signs Q1H Vital Signs Q5MIN fentaNYL citrate/PF [Sublimaze] 50 mcg IVPUSH Q5M PRN 06/23/20 04:30 Lactated Ringers [Lr] 1,000 ml IVCONT 100 mls/hr 06/23/20 04:58 Transfer Order Routine 06/23/20 04:59 Acetaminophen Supp [Tylenol Supp] 650 mg CA Q6H PRN Acetaminophen [Tylenol] 650 mg PO Q4H PRN 06/23/20 05:01 Intake and Output Q4HR Vital Signs Q4HR 06/23/20 05:26 fentaNYL citrate/PF [Sublimaze] 50 mcg .ROUTE .STK-MED ONE 06/23/20 05:49 Ketorolac Tromethamine [Toradol] 30 mg .ROUTE .STK-MED ONE 06/23/20 08:19 fentaNYL citrate/PF [Sublimaze] 100 mcg .ROUTE .STK-MED ONE 06/23/20 09:38 Piperacillin Sodium/Tazobactam [Zosyn] 3.375 gm IV .STK-MED ONE 06/23/20 Breakfast NPO Diet 06/23/20 13:28 Piperacillin Sodium/Tazobactam [Zosyn] 3.375 gm IV .STK-MED ONE 06/23/20 18:02 Piperacillin Sodium/Tazobactam [Zosyn] 3.375 gm IV .STK-MED ONE 06/23/20 23:54 Piperacillin Sodium/Tazobactam [Zosyn] 3.375 gm IV .STK-MED ONE 06/24/20 05:09 Basic Metabolic Panel Routine Complete Blood Count no Diff Routine 06/24/20 05:45 Piperacillin Sodium/Tazobactam [Zosyn] 3.375 gm IV .STK-MED ONE 06/24/20 07:00 FL upper GI series Routine 06/24/20 12:55 Piperacillin Sodium/Tazobactam [Zosyn] 3.375 gm IV .STK-MED ONE 06/24/20 15:59 Lidocaine HCl 2 % MPF [Xylocaine 2 % MPF] 5 ml .ROUTE .STK-MED ONE dexAMETHasone sod phosphate [Decadron] 4 mg .ROUTE .STK-MED ONE ondansetron HCL [Zofran] 4 mg .ROUTE .STK-MED ONE propofoL [Diprivan] 200 mg IVPUSH .STK-MED ONE 06/24/20 19:27 Piperacillin Sodium/Tazobactam [Zosyn] 3.375 gm IV .STK-MED ONE 06/24/20 23:51 Piperacillin Sodium/Tazobactam [Zosyn] 3.375 gm IV .STK-MED ONE 06/25/20 05:55 Piperacillin Sodium/Tazobactam [Zosyn] 3.375 gm IV .STK-MED ONE 06/25/20 05:56 Complete Blood Count Auto Diff Routine Laboratory Last Values WBC 11.1 X10*3/uL (4.8-10.8) H 06/25/20 05:56 RBC 3.85 X10*6/uL (4.60-5.80) L 06/25/20 05:56 Hgb 12.2 g/dl (14.0-18.0) L 06/25/20 05:56 Hct 37.7 % (42-52) L 06/25/20 05:56 MCV 97.9 fL (80-98) 06/25/20 05:56 MCH 31.7 pg (27.0-33.0) 06/25/20 05:56 MCHC 32.4 g/dl (31.0-36.0) 06/25/20 05:56 RDW 12.2 % (11.0-16.0) 06/25/20 05:56 Plt Count 207 X10*3/uL (160-400) 06/25/20 05:56 MPV 10.9 fL (9.4-12.4) 06/25/20 05:56 Immature Gran % (Auto) 0.3 % (0.0-0.4) 06/25/20 05:56 Neut % (Auto) 70.1 % (45-73) 06/25/20 05:56 Lymph % (Auto) 22.7 % (20-40) 06/25/20 05:56 [place] % (Auto) 6.1 % (2-11) 06/25/20 05:56 Eos % (Auto) 0.7 % (0-4) 06/25/20 05:56 Baso % (Auto) 0.1 % (0-2) 06/25/20 05:56 Lymph # (Auto) 2.5 X10*3/uL (1.2-4.9) 06/25/20 05:56 [place] # (Auto) 0.7 X10*3/uL (0.1-1.2) 06/25/20 05:56 Eos # (Auto) 0.1 X10*3/uL (0.0-0.4) 06/25/20 05:56 Baso # (Auto) 0.0 X10*3/uL (0.0-0.2) 06/25/20 05:56 Abs Immat Gran (auto) 0.03 X10*3/uL (0.00-0.03) 06/25/20 05:56 Absolute Neuts (auto) 7.8 X10*3/uL (2.0-8.3) 06/25/20 05:56 Absolute Nucleated RBC 0.000 X10*3/uL (0.0-0.012) 06/25/20 05:56 Nucleated RBC % (auto) 0.0 /100WBC (0.0-0.2) 06/25/20 05:56 Hold Blue Top SEE NOTE 06/23/20 00:06 Sodium 138 mmol/L (135-145) 06/24/20 05:09 Potassium 4.1 mmol/l (3.3-5.1) 06/24/20 05:09 Chloride 106 mmol/L (96-108) 06/24/20 05:09 Carbon Dioxide 24 mmol/L (22-29) 06/24/20 05:09 Anion Gap 12 (12-20) 06/24/20 05:09 BUN 13 mg/dL (9-16) 06/24/20 05:09 Creatinine 0.77 mg/dL (0.5-1.4) 06/24/20 05:09 Estim Creat Clear Calc 113.3 06/24/20 05:09 Estimated GFR > 60 06/24/20 05:09 Random Glucose 125 mg/dL (60-115) H D 06/24/20 05:09 Lactic Acid 1.4 mmol/L (0.5-2.0) 06/23/20 03:07 Calcium 8.0 mg/dL (8.4-10.2) L 06/24/20 05:09 Magnesium 1.8 mg/dL (1.6-2.6) 06/23/20 00:06 Total Bilirubin 0.5 mg/dL (0.0-1.0) 06/23/20 00:06 Direct Bilirubin 0.3 mg/dL (0.0-0.5) 06/23/20 00:06 AST 15 U/L (5-37) 06/23/20 00:06 ALT 21 U/L (0-40) 06/23/20 00:06 Alkaline Phosphatase 67 U/L (39-117) 06/23/20 00:06 Total Protein 6.5 g/dL (6.5-8.0) 06/23/20 00:06 Albumin 4.0 g/dL (3.5-5.0) 06/23/20 00:06 Lipase 34 U/L (8-78) 06/23/20 00:06 Ethyl Alcohol 105 mg/dL 06/23/20 00:06 COVID-19 ([facility]) Negative (Negative) 06/23/20 03:27 COVID-19 Clin Com See Note 06/23/20 03:27 Blood Type O Positive 06/23/20 03:26 Antibody Screen NEGATIVE 06/23/20 03:26 Preliminary micro results at discharge 06/23/20 03:27 Blood Culture - Preliminary Blood - Venous No growth after 48 hours. 06/23/20 03:07 Blood Culture - Preliminary Blood - Venous No growth after 48 hours. Discharge Plan Discharge Patient Disposition: Home, Self-Care Referrals: Tiana Real MD [Physician] - 1 Week Physician,Unknown [Primary Care Provider] - Discharge Medications: New omeprazole 40 mg capsule,delayed release(DR/EC) 40 mg PO DAILY Qty: 30 RF: 0 amoxicillin-pot clavulanate [Augmentin] 500-125 mg tablet 1 tab PO BID Qty: 14 RF: 0 nicotine 7 mg/24 hr Patch 24 Hour 7 mg transdermal DAILY 28 Days Qty: 28 RF: 1 oxycodone 5 mg Tablet 5 mg PO Q3H PRN (Reason: Pain, Moderate (Pain Scale 4-6) 7 Days Qty: 30 RF: 0 docusate sodium [Colace] 100 mg capsule 100 mg PO BID Qty: 30 RF: 1 Discharge Orders: Discharge Order (Routine); Ordered 06/25/20 Ordered By: Tiana Real Diet: regular diet Activity on Discharge: No heavy lifting Patient Instructions: Peptic Ulcer (DC) Activity Restrictions/Additional Instructions: If the incision area is tender, you may apply an ice pack for short intervals (No more than 20 minutes on, followed by at least 20 minutes off). Do not apply heat. Do not use creams, lotions, or topical antibiotics unless instructed to do so by your surgeon. These can cause infection or allergic reaction. Ok to shower. AVOID NSAIDS (ie motrin, ibuprofen, advil, aleve, naproxen), aspirin, cigarette smoking and alcohol. Call Your Doctor If: -Your temperature exceeds 101.5? F -You experience excessive pain or swelling -You have an unexpected reaction to medication -You have excessive bleeding -You experience continued vomiting/nausea -Your incision begins to separate -Your incision shows signs of infection such as increased redness, swelling, excessive pain, drainage (light blood or clear fluid is normal) or heat Follow-up with Dr. Real in 2 weeks following discharge. Call her office at [phone] schedule a follow-up appointment. You may resume regular diet. You may also take milk of magnesia [id number] if you do not have a bowel movement in 2 days following discharge. You should use oxycodone as needed for pain control. You may also alternate oxycodone with extra-strength Tylenol 1000 mg every 6 hours not to exceed 4000 mg in a 24 hour period. You should avoid all hot tubs baths or swimming pools. You may shower. Visit Report Forms: Patient Portal Discharge page Care Plan Goals: Return to baseline health and activity following recovery period. Health Concerns: Perforated gastric ulcer Plan of Treatment: S/p diagnostic laparoscopy and corky patch, antibiotics, antifungals and PPI, discharge to home with f/u in office with Dr. Real
[2020-06-25 11:36] VITALS: BP 135/89; PULSE 103; RESP 18; TEMP 36.9; O2SAT 100
--- NOTE | 2020-06-25 12:03 | PC.NURSE ---
Rico Texted DR. Castellon concerning 1 out of 2 positive BC for gram positive rods. Micro asked that Dr. Castellon call them. Told patient's nurse
== END 2020-06-25 13:07 | disposition home or self-care (01) | DRG 222 ==
LOC: HO.ED 06-23 03:12 → HO.SSS 06-23 07:44 → HO.S3 06-23 10:52
PROVIDERS: Internal Medicine; Physician Assistant Surgical; Admitting Provider Surgery; Emergency Provider Emergency Medicine; Visit Provider Surgery
PROC: 0DU747Z Supplement Stomach, Pylorus with Autologous Tissue Substitute, Percutaneous Endoscopic Approach (ICD-10-PCS; CPT 49320; principal; 2020-06-23 04:00)
DX: K25.1 Acute gastric ulcer with perforation (principal); F17.210 Nicotine dependence, cigarettes, uncomplicated; Z87.442 Personal history of urinary calculi; Z20.828 Contact with and (suspected) exposure to other viral communicable diseases; Z71.6 Tobacco abuse counseling
CPT/HCPCS: 36415; 74177; 74240; 80048; 80076; 80320; 83605; 83690; 83735; 85025; 85027; 86850; 86900; 86901; 87040; 87147; 87205; 87635; 96361; 96365; 96375; 99024; 99285; J0131; J1100; J1200; J1450; J1885; J2250; J2270; J2405; J2543; J2765; J3010; Q9967

== ENCOUNTER 2020-09-24 13:54 | Emergency (ER) | payer OTHER, SELFPAY ==
--- NOTE | ~2020-09-24 | CT_ITS ---
EXAMINATION: CT ABDOMEN AND PELVIS WITH CONTRAST CLINICAL INFORMATION: Upper abdominal pain. Status post intestinal perforation. COMPARISON: CT abdomen and pelvis with contrast 06/23/2020 TECHNIQUE: Multidetector volumetric images were obtained from the superior aspect of the liver through the pubic symphysis following administration 85 mL of Omnipaque 350 intravenous contrast. Sagittal and coronal reformatted images were obtained on the technologist's workstation. Oral contrast: No This CT examination was performed using dose optimization techniques as appropriate, variously including the following: *Automated exposure control *Adjustment of mA and/or kV according to patient size (this includes techniques or standardized protocols for targeted exams where dose is matched to indication/reason for exam; i.e. extremities or head) *Use of iterative reconstruction technique DLP: 303 mGy-cm FINDINGS: LUNG BASES: The visualized lung bases are unremarkable. LIVER, GALLBLADDER, AND BILIARY TREE: The liver is normal in size, shape, and attenuation. No focal hepatic lesion or biliary ductal dilatation is present. The gallbladder is unremarkable with no evidence of radiopaque gallstones, gallbladder wall thickening, or obvious pericholecystic inflammatory changes. PANCREAS: Unremarkable. SPLEEN: Unremarkable. ADRENAL GLANDS: Unremarkable. KIDNEYS AND URETERS: The kidneys are normal in size, shape, and attenuation. No hydronephrosis, hydroureter, or calculi seen. No perinephric stranding. BLADDER: Unremarkable. GASTROINTESTINAL TRACT: There is moderate stool seen throughout the colon without any significant distention. The small bowel loops are normal caliber. The stomach is distended with recently ingested food. ABDOMINAL WALL: No significant hernia is appreciated. LYMPH NODES: Normal. VASCULAR: Unremarkable. PELVIC VISCERA: Large amount of stool is seen in the rectum and the sigmoid colon. OSSEOUS STRUCTURES: There are degenerative disc changes with vacuum disc phenomena and ventral spondylosis at L4-L5 disc level. CT/CT abdomen pelvis w con IMPRESSION: Significant constipation. No obstruction or free air. Appendix is not seen. Degenerative disc changes with vacuum disc phenomena at L4-L5 disc levels.
[2020-09-24 14:07] VITALS: BP 117/74; PULSE 90; RESP 12; TEMP 36.9; O2SAT 97; BMI 16.0
[2020-09-24 15:29] LABS: MANUAL DIFF FLAG NO
[2020-09-24 15:31] LABS: Basophils Percent Auto 0.4 % (0-2); Eosinophils Absolute Auto 0.1 X10*3/uL (0.0-0.4); Eosinophils Percent Auto 0.6 % (0-4); Hematocrit 49.6 % (42-52); Hemoglobin 15.8 g/dl (14.0-18.0); Imm Gran Abs Auto 0.02 X10*3/uL (0.00-0.03); Imm Gran Pct Auto 0.2 % (0.0-0.4); Lymphocytes Absolute Auto 1.5 X10*3/uL (1.2-4.9); Mean Corpuscular HGB Conc 31.9 g/dl (31.0-36.0); Mean Corpuscular Hemoglobin 31.3 pg (27.0-33.0); Mean Corpuscular Volume 98.4 fL (80-98); Monocytes Absolute Auto 0.6 X10*3/uL (0.1-1.2); Monocytes Percent Auto 7.1 % (2-11); Neutrophils Absolute Auto 6.3 X10*3/uL (2.0-8.3); Neutrophils Percent Auto 73.7 % (45-73); Platelet Count 254 X10*3/uL (160-400); Red Blood Count 5.04 X10*6/uL (4.60-5.80); Red Cell Distribution Width 13.3 % (11.0-16.0); White Blood Count 8.5 X10*3/uL (4.8-10.8)
[2020-09-24 15:35] LABS: Glucose Urine UA NEG (NEG); Leukocyte Esterase Urine NEG (NEG); Nitrite Urine NEG (NEG); PH 7.5 (5.0-8.0); Specific Gravity - Urine 1.015 (1.005-1.025); Urine Blood NEG (NEG); Urine Ketones 5 MG/DL (NEG); Urine Protein TRACE MG/DL (NEG-TRACE)
[2020-09-24 15:37] LABS: Appearance Urine CLEAR; Color Urine YELLOW; INTERNATIONAL NORM RATIO 1.1 (0.9-1.1)
[2020-09-24 15:40] LABS: Partial Thromboplastin Time 32.2 SEC (24.1-38.0)
[2020-09-24] MEDS: Ketorolac Tromethamine 15 MG/ML VIAL IVPUSH (15:53)
[2020-09-24] MEDS: 0.9 % Sodium Chloride 1,000 ML 999 ML IVCONT ×2 (15:53→19:37)
[2020-09-24] MEDS: ondansetron HCL 4 MG/2 ML VIAL IVPUSH (15:53)
[2020-09-24] MEDS: Famotidine/PF 20 MG/2 ML VIAL IVPUSH (15:53)
[2020-09-24 15:55] VITALS: BP 120/54; PULSE 92; RESP 18; O2SAT 98
--- NOTE | 2020-09-24 16:31 | ED_ITS ---
HPI - Abdominal Pain General Chief Complaint: Abdominal Pain Stated Complaint: ABD PAIN Time Seen by Provider: 09/24/20 15:02 Source: patient Mode of arrival: ambulatory History of Present Illness HPI narrative: 35-year-old male with a past medical history of renal stone, perforation S/P laparoscopic Corky patch repair on 06/23/2020 presenting to the ED complaining of worsening abdominal pain x1 week with associated nausea and vomiting. Reports decreased p.o. intake. Denies fever, chills, dysuria/hematuria, constipation/diarrhea MD elicited complaint: abdominal pain Related Data Previous Rx's Medication Instructions Recorded amoxicillin-pot clavulanate 1 tab PO BID #14 tab 06/24/20 [Augmentin] omeprazole 40 mg PO DAILY #30 cap 06/24/20 docusate sodium [Colace] 100 mg PO BID #30 cap 06/25/20 nicotine 7 mg TRANSDERMAL DAILY 28 Days #28 06/25/20 ea oxycodone 5 mg PO Q3H PRN 7 Days #30 tab 06/25/20 Allergies Allergy/AdvReac Type Severity Reaction Status Date / Time No Known Allergies Allergy Unverified 06/23/20 04:46 Review of Systems Review of Systems Constitutional: No Fever, No Chills Cardiovascular: No Chest Pain, No SOB Respiratory: No Cough, No Dyspnea Gastrointestinal: + Nausea, + Vomiting, No Diarrhea, No Constipation, + Abdominal pain, No Hematochezia, No Melena Genitourinary: No Dysuria, No Urinary Frequency, No Hematuria, No Urinary Incontinence, No Urgency, No Flank Pain Musculoskeletal: No joint pain, No Myalgias, No Joint Swelling Skin: No Skin Lesions, No rash Yes all other systems are reviewed and are negative Physical Exam Vital Signs: Vital Signs: Last Vital Signs Temp 98.4 F 09/24/20 18:51 Pulse 76 09/24/20 18:51 Resp 20 09/24/20 19:36 BP 121/67 09/24/20 18:51 Pulse Ox 99 09/24/20 18:51 Body Mass Index 16.0 Const: General: cooperative and healthy appearing Orientation/consciousness: patient oriented x3 Limitations: no limitations HENMT: Head: Yes normal to inspection Ears: hearing grossly normal bilaterally General nose exam: Normal external nose present Face and sinus: Yes normal facial exam Eyes: General: appearance normal, both eyes and all related structures EOM: EOMs intact bilaterally Neck: Neck: Yes normal visual inspection Resp: Effort & Inspection: normal respiratory effort Cardio: Rate: regular rate GI: Inspection: Yes normal to inspection Palpation (GI): Soft to palpation, Tenderness to palpation present (GI) in the epigastrum, in the LLQ, in the LUQ and in the RUQ, no guarding and not rigid : General: Yes no CVA tenderness Back/Spine/Pelvis: Back: no CVA tenderness Skin: Rashes: no rashes Wounds: no wounds Neuro: General: patient oriented x3 Gait exam (Neuro): Normal gait present Extrem: General: Yes normal to inspection Course Course Course Narrative: -no leukocytosis, H&H stable, labs otherwise unremarkable, UA neg CT abdomen pelvis w con IMPRESSION: Significant constipation. No obstruction or free air. Appendix is not seen. Degenerative disc changes with vacuum disc phenomena at L4-L5 disc levels. >> on re-evaluation patient still in significant pain/significantly tender on exam. Case was previously discussed with surgery, Dr. Champion who saw patient in ED and recommended admission for nausea/vomiting/abdominal pain Patient is now agreeable to admission. Currently refusing senna, reports he is not constipated. Will admit for further management/observation MDM - Abdominal Pain MDM Narrative Medical decision making narrative: 35-year-old male with a past medical history of renal stone, perforation S/P laparoscopic Corky patch repair on 06/23/2020 presenting to the ED complaining of worsening abdominal pain x1 week with associated nausea and vomiting. On exam VSS, NAD, abdomen soft with upper/LLQ ttp, no rebound or guarding. Concern for surgical complication/perforation vs diverticulitis vs cholecystitis/cholelithiasis vs pancreatitis Plan: Labs, UA, CT AP, symptomatic treatment/IVF, reassess Medical Records Attestation: I reviewed the patient's medical records. Lab Data Attestation: I reviewed the patient's lab results. Result diagrams: 09/24/20 15:22 09/24/20 15:22 Labs: Lab Results 09/24/20 09/24/20 09/24/20 Range/Units 15:22 15:22 15:22 WBC 8.5 (4.8-10.8) X10*3/uL RBC 5.04 D (4.60-5.80) X10*6/uL Hgb 15.8 D (14.0-18.0) g/dl Hct 49.6 D (42-52) % MCV 98.4 H (80-98) fL MCH 31.3 (27.0-33.0) pg MCHC 31.9 (31.0-36.0) g/dl RDW 13.3 (11.0-16.0) % Plt Count 254 (160-400) X10*3/uL MPV 10.0 (9.4-12.4) fL Immature Gran % (Auto) 0.2 (0.0-0.4) % Neut % (Auto) 73.7 H (45-73) % Lymph % (Auto) 18.0 L (20-40) % [place] % (Auto) 7.1 (2-11) % Eos % (Auto) 0.6 (0-4) % Baso % (Auto) 0.4 (0-2) % Lymph # (Auto) 1.5 (1.2-4.9) X10*3/uL [place] # (Auto) 0.6 (0.1-1.2) X10*3/uL Eos # (Auto) 0.1 (0.0-0.4) X10*3/uL Baso # (Auto) 0.0 (0.0-0.2) X10*3/uL Abs Immat Gran (auto) 0.02 (0.00-0.03) X10*3/uL Absolute Neuts (auto) 6.3 (2.0-8.3) X10*3/uL Absolute Nucleated RBC 0.000 (0.0-0.012) X10*3/uL Nucleated RBC % (auto) 0.0 (0.0-0.2) /100WBC PT 13.0 (10.8-13.0) SEC INR 1.1 (0.9-1.1) APTT 32.2 (24.1-38.0) SEC Sodium 140 (135-145) mmol/L Potassium 4.0 (3.3-5.1) mmol/L Chloride 102 (96-108) mmol/L Carbon Dioxide 33 H (22-29) mmol/L Anion Gap 9 L (12-20) BUN 12 (9-16) mg/dL Creatinine 1.07 (0.5-1.4) mg/dL Estim Creat Clear Calc 82.6 Estimated GFR > 60 Random Glucose 168 H (60-115) mg/dL Lactic Acid (0.5-2.0) mmol/L Calcium 9.3 D (8.4-10.2) mg/dL Magnesium 2.2 (1.6-2.6) mg/dL Total Bilirubin 0.6 (0.0-1.0) mg/dL Direct Bilirubin 0.3 (0.0-0.5) mg/dL AST 13 (5-37) U/L ALT 17 (0-40) U/L Alkaline Phosphatase 70 (39-117) U/L Total Protein 6.6 (6.5-8.0) g/dL Albumin 4.0 (3.5-5.0) g/dL Lipase 16 (8-78) U/L Urine Color Urine Appearance Urine pH (5.0-8.0) Ur Specific [place] (1.005-1.025) Urine Protein (NEG-TRACE) MG/DL Urine Glucose (UA) (NEG) MG/DL Urine Ketones (NEG) MG/DL Urine Blood (NEG) Urine Nitrite (NEG) Ur Leukocyte Esterase (NEG) 09/24/20 09/24/20 Range/Units 15:22 15:22 WBC (4.8-10.8) X10*3/uL RBC (4.60-5.80) X10*6/uL Hgb (14.0-18.0) g/dl Hct (42-52) % MCV (80-98) fL MCH (27.0-33.0) pg MCHC (31.0-36.0) g/dl RDW (11.0-16.0) % Plt Count (160-400) X10*3/uL MPV (9.4-12.4) fL Immature Gran % (Auto) (0.0-0.4) % Neut % (Auto) (45-73) % Lymph % (Auto) (20-40) % [place] % (Auto) (2-11) % Eos % (Auto) (0-4) % Baso % (Auto) (0-2) % Lymph # (Auto) (1.2-4.9) X10*3/uL [place] # (Auto) (0.1-1.2) X10*3/uL Eos # (Auto) (0.0-0.4) X10*3/uL Baso # (Auto) (0.0-0.2) X10*3/uL Abs Immat Gran (auto) (0.00-0.03) X10*3/uL Absolute Neuts (auto) (2.0-8.3) X10*3/uL Absolute Nucleated RBC (0.0-0.012) X10*3/uL Nucleated RBC % (auto) (0.0-0.2) /100WBC PT (10.8-13.0) SEC INR (0.9-1.1) APTT (24.1-38.0) SEC Sodium (135-145) mmol/L Potassium (3.3-5.1) mmol/L Chloride (96-108) mmol/L Carbon Dioxide (22-29) mmol/L Anion Gap (12-20) BUN (9-16) mg/dL Creatinine (0.5-1.4) mg/dL Estim Creat Clear Calc Estimated GFR Random Glucose (60-115) mg/dL Lactic Acid 1.8 (0.5-2.0) mmol/L Calcium (8.4-10.2) mg/dL Magnesium (1.6-2.6) mg/dL Total Bilirubin (0.0-1.0) mg/dL Direct Bilirubin (0.0-0.5) mg/dL AST (5-37) U/L ALT (0-40) U/L Alkaline Phosphatase (39-117) U/L Total Protein (6.5-8.0) g/dL Albumin (3.5-5.0) g/dL Lipase (8-78) U/L Urine Color YELLOW Urine Appearance CLEAR Urine pH 7.5 (5.0-8.0) Ur Specific [place] 1.015 (1.005-1.025) Urine Protein TRACE (NEG-TRACE) MG/DL Urine Glucose (UA) NEG (NEG) MG/DL Urine Ketones 5 (NEG) MG/DL Urine Blood NEG (NEG) Urine Nitrite NEG (NEG) Ur Leukocyte Esterase NEG (NEG) Discharge Plan Discharge Clinical Impression: Abdominal pain, Constipation, Nausea & vomiting Patient Disposition: Admitted As Inpatient Prescriptions: No Action omeprazole 40 mg capsule,delayed release(DR/EC) 40 mg PO DAILY Qty: 30 RF: 0 amoxicillin-pot clavulanate [Augmentin] 500-125 mg tablet 1 tab PO BID Qty: 14 RF: 0 nicotine 7 mg/24 hr Patch 24 Hour 7 mg transdermal DAILY 28 Days Qty: 28 RF: 1 oxycodone 5 mg Tablet 5 mg PO Q3H PRN (Reason: Pain, Moderate (Pain Scale 4-6) 7 Days Qty: 30 RF: 0 docusate sodium [Colace] 100 mg capsule 100 mg PO BID Qty: 30 RF: 1 PMFSH Past Medical History Attestation statement: The following information was validated with the patient. Medical History (Updated 09/24/20 @ 19:50 by LIYA Mcfarlane) Adopted Kidney stone Surgical History (Updated 06/25/20 @ 10:08 by Tiana Real MD) History of ureter stent Status post gastric surgery Family History Family History (Updated 06/23/20 @ 04:45 by Tiana Real MD) Mother No problems noted. Father No problems noted. Social History Social History (Updated 06/23/20 @ 04:45 by Tiana Real MD) Alcohol intake: current Alcohol intake frequency: does not drink Alcohol type: beer Smoking Status: Current every day smoker Cigarettes Per Day: 5 Use of substances other than those prescribed or required for medical reasons: No Substance Use Type: Marijuana Advance Directives: No Advance Directives Information Provided: No service: No Current occupational status: employed
[2020-09-24 16:42] LABS: Lactic Acid 1.8 mmol/L (0.5-2.0)
[2020-09-24 17:02] LABS: Alanine Aminotransferase 17 U/L (0-40); Alkaline Phosphatase 70 U/L (39-117); Anion Gap 9 (12-20); Aspartate Amino Transferase 13 U/L (5-37); Bilirubin Direct 0.3 mg/dL (0.0-0.5); Bilirubin Total 0.6 mg/dL (0.0-1.0); Blood Urea Nitrogen 12 mg/dL (9-16); Calcium 9.3 mg/dL (8.4-10.2); Carbon Dioxide 33 mmol/L (22-29); Chloride 102 mmol/L (96-108); Creatinine Clr Calc Pharmacy 82.6; Estimated Glomerular Filt Rate > 60; Glucose Random 168 mg/dL (60-115); Lipase 16 U/L (8-78); Magnesium 2.2 mg/dL (1.6-2.6); Sodium 140 mmol/L (135-145); Total Protein 6.6 g/dL (6.5-8.0)
[2020-09-24] MEDS: iohexoL 350 MG/ML 100 ML INFUS..BTL IV (17:57)
[2020-09-24 18:51] VITALS: BP 121/67; PULSE 76; RESP 18; TEMP 36.9; O2SAT 99
[2020-09-24 19:36] VITALS: RESP 20
[2020-09-24] MEDS: Morphine Sulfate 2 MG/ML CARTRIDGE IVPUSH (19:36)
--- NOTE | 2020-09-24 19:46 | PC.NURSE ---
Patient was notified by LIYA Mcfarlane of plan to admit. Upon this RN entering the patient's room to medicate him, this RN explained purpose of medications, and pt refused Senna stating I'm not fucking constipated. I'm not taking that shit . Pt accepted morphine and fluid administration. This RN notified provider that pt is annoyed regarding diagnosis confirmed by CT scan, and refuses to accept admitting diagnosis.
--- NOTE | 2020-09-24 19:55 | PM.HPGS ---
History of Present Illness History of Present Illness Date of Service: 09/25/20 Chief complaint: ABD PAIN Narrative: Xavier Adams is a 35 year old male here in the ED for epigastric pain. He says he has had this for over a weeks now. He has had nausea and vomitting in the morning at about 4 AM everyday for the past 4 days. He denies diarrhea or constipation. His history is significant for a perforated gastric ulcer last June 23, 2020. He underwent laparoscopic omental patching with Dr. Real at that time. He was discharged on POD 2 then but apparently had not followed up with any doctor. He was prescribed Prilosec on discharge which he has not taken at all. He denies chronic NSAID use. He drinks alcohol 2-3 times a week. He smokes about 2-3 cigarettes a day. Review of Systems Constitutional: Constitutional: Denies chills and Denies fever(s) Cardiovascular: Cardiovascular: Denies chest pain, Denies dyspnea and Denies dyspnea on exertion Respiratory: Respiratory: Denies cough, Denies dyspnea and Denies dyspnea on exertion Gastrointestinal: Gastrointestinal: Denies hematochezia and Denies change in bowel habits Genitourinary: Genitourinary: Denies hematuria and Denies difficulty urinating Musculoskeletal: Musculoskeletal: Denies back pain and Denies limited range of motion Neurologic: Denies focal weakness and Denies convulsions Psychiatric: Psychiatric: Denies depression and Denies mood swings [facility] Past Medical History Medical History (Updated 09/24/20 @ 19:50 by LIYA Mcfarlane) Adopted Kidney stone Family History Family History (Updated 06/23/20 @ 04:45 by Tiana Rela MD) Mother No problems noted. Father No problems noted. Surgical History Surgical History (Updated 06/25/20 @ 10:08 by Tiana Real MD) History of ureter stent Status post gastric surgery Social History Social History (Updated 06/23/20 @ 04:45 by Tiana Real MD) Alcohol intake: current Alcohol intake frequency: does not drink Alcohol type: beer Smoking Status: Current every day smoker Cigarettes Per Day: 5 Use of substances other than those prescribed or required for medical reasons: No Substance Use Type: Marijuana Advance Directives: No Advance Directives Information Provided: No service: No Current occupational status: employed Meds Allergies Allergy/AdvReac Type Severity Reaction Status Date / Time No Known Allergies Allergy Unverified 06/23/20 04:46 Active Medications: Current Medications Generic Name Dose Route Start Last Admin Trade Name Shilpi PRN Reason Stop Dose Admin Acetaminophen 650 mg 09/24/20 19:51 Acetaminophen Supp 650 Mg Supp.Rect RI Q6H PRN Fever Docusate Sodium 100 mg 09/24/20 21:00 Docusate Sodium 100 Mg Capsule PO BID JONH Sodium Chloride 1,000 mls @ 999 mls/hr 09/24/20 19:30 09/24/20 19:37 Ns IVCONT 09/24/20 20:30 999 mls/hr .Q1H1M JONH Administration Dextrose/Sodium Chloride 1,000 mls @ 100 mls/hr 09/24/20 19:45 D5ns IVCONT .Q10H JONH Lactated Ringer's 1,000 mls @ 100 mls/hr 09/24/20 20:00 Lr IVCONT .Q10H JONH Morphine Sulfate 2 mg 09/24/20 19:46 Morphine Sulfate 2 Mg/Ml Cartridge IVPUSH Q4H PRN Pain, Severe (Pain Scale 7-10) Omeprazole 40 mg 09/25/20 06:30 Omeprazole 40 Mg Capsule.Dr PO DAILY@0630 [facility] Ondansetron HCl 4 mg 09/24/20 19:48 Ondansetron Hcl 4 Mg/2 Ml Vial IVPUSH Q8H PRN nausea Oxycodone HCl 5 mg 09/24/20 19:46 Oxycodone Hcl Immed Release 5 Mg Tablet PO Q4H PRN Pain, Moderate (Pain Scale 4-6 Sodium Chloride 3 ml 09/25/20 00:00 0.9 % Sodium Chloride Flush 3 Ml Syringe IVFLUSH QSHIFT [facility] Physical Exam Vital Signs: Vital Signs: Last Vital Signs Temp 98.4 F 09/24/20 18:51 Pulse 76 09/24/20 18:51 Resp 20 09/24/20 19:36 BP 121/67 09/24/20 18:51 Pulse Ox 99 09/24/20 18:51 Body Mass Index 16.0 Const: General: comfortable and no acute distress Orientation/consciousness: patient oriented x3 Neck: Neck: Yes no lymphadenopathy Resp: Auscultation: clear to auscultation bilaterally Cardio: Rhythm: regular rhythm GI: Other: significant tenderness on epigastric area; no Wadsworth's sign, no hernias Palpation (GI): Soft to palpation, Tenderness to palpation present (GI) and no guarding Neuro: General: patient oriented x3 Results Results Labs: Short CBC 09/24/20 Range/Units 15:22 WBC 8.5 (4.8-10.8) X10*3/uL Hgb 15.8 D (14.0-18.0) g/dl Hct 49.6 D (42-52) % Plt Count 254 (160-400) X10*3/uL BMP 09/24/20 15:22 Sodium 140 Potassium 4.0 Chloride 102 Carbon Dioxide 33 H BUN 12 Creatinine 1.07 Calcium 9.3 D Liver Function 09/24/20 Range/Units 15:22 Total Bilirubin 0.6 (0.0-1.0) mg/dL Direct Bilirubin 0.3 (0.0-0.5) mg/dL AST 13 (5-37) U/L ALT 17 (0-40) U/L Alkaline Phosphatase 70 (39-117) U/L Albumin 4.0 (3.5-5.0) g/dL Urine 09/24/20 Range/Units 15:22 Urine Color YELLOW Urine Appearance CLEAR Urine pH 7.5 (5.0-8.0) Ur Specific [place] 1.015 (1.005-1.025) Urine Protein TRACE (NEG-TRACE) MG/DL Urine Glucose (UA) NEG (NEG) MG/DL Assessment and Plan (1) Abdominal pain: Status: Acute He has significant pain on the epigastric area. His CT scan does not show any acute intraabdominal pathology. There is no inflammatory changes seen. He has no leukocystosis. However, in view of his recent perforated gastric ulcer, I will admit him for serial exam and monitoring. Gastritis is the likely etiology. I have started him on PPIs. I have counseled him on the benefits of smoking cessation and ETOH intake cessation. He is hemodynamically stable and his labs are unremarkable.
[2020-09-24] MEDS: Dextrose 5 % and 0.9 % NaCl 1,000 ML 100 ML IVCONT (20:49)
[2020-09-24] MEDS: oxyCODONE HCl Immed Release 5 MG TABLET PO (20:55)
[2020-09-24] MEDS: Pantoprazole Sodium 40 MG/10 ML VIAL IVPUSH (20:55)
[2020-09-24] MEDS: Docusate Sodium 100 MG CAPSULE PO (20:56)
--- NOTE | 2020-09-24 21:47 | PC.NURSE ---
This RN spoke with over the phone regarding D5NS and LR orders. Per , discontinue LR, infuse D5NS only. MAR updated to reflect this change. Pt to be on clear liquid diet only, awaiting admission bed.
--- NOTE | 2020-09-24 22:33 | PC.NURSE ---
PATIENT REQUESTING TO LEAVE AGAINST MEDICAL ADVICE. THIS RN WAS NOTIFIED THAT PATIENT HAD ORDERED TACO BLANCO TO BE DELIVERED TO THE HOSPITAL. WHEN PATIENT WAS RE-NOTIFIED OF CLEAR LIQUID DIET STATUS, PT STATES THAT'S IT! FUCK THIS! I'M LEAVING! I'M NOT STAYING. I HAVEN'T EATEN SINCE THIS MORNING AND I'M HUNGRY . PT REMINDED THAT FOOD/DRINK WAS OFFERED MULTIPLE TIMES BY THIS RN AND PT REFUSED BECAUSE YOUR FOOD IS SHIT . AWARE/NOTIFIED VIA PHONE. PT REFUSING TO STAY FOR PAPERWORK. IV ACCESS REMOVED, PT FOUND OWN RIDE, AMBULATED WITH STEADY GAIT OUT OF ED AGAINST MEDICAL ADVICE.
== END 2020-09-24 22:39 | disposition left against medical advice (07) ==
PROVIDERS: Physician Assistant; Emergency Provider Emergency Medicine Emergency Medical Services
DX: R10.32 Left lower quadrant pain (principal); K59.00 Constipation, unspecified; R11.2 Nausea with vomiting, unspecified; F12.90 Cannabis use, unspecified, uncomplicated; F17.200 Nicotine dependence, unspecified, uncomplicated; Z71.6 Tobacco abuse counseling; Z79.899 Other long term (current) drug therapy
CPT/HCPCS: 36415; 74177; 80048; 80076; 81003; 83605; 83690; 83735; 85025; 85610; 85730; 99284; J1885; J2270; J2405; Q9967

== ENCOUNTER 2021-01-02 00:51 | Emergency (ER) | payer OTHER, SELFPAY ==
[2021-01-02 01:53] LABS: Basophils Percent Auto 0.3 % (0-2); Eosinophils Absolute Auto 0.2 X10*3/uL (0.0-0.4); Eosinophils Percent Auto 2.3 % (0-4); Hematocrit 42.2 % (42-52); Hemoglobin 14.2 g/dl (14.0-18.0); Imm Gran Abs Auto 0.02 X10*3/uL (0.00-0.03); Imm Gran Pct Auto 0.2 % (0.0-0.4); Lymphocytes Percent Auto 32.4 % (20-40); MANUAL DIFF FLAG NO; Mean Corpuscular HGB Conc 33.6 g/dl (31.0-36.0); Mean Corpuscular Hemoglobin 32.2 pg (27.0-33.0); Mean Corpuscular Volume 95.7 fL (80-98); Mean Platelet Volume 9.9 fL (9.4-12.4); Monocytes Absolute Auto 0.7 X10*3/uL (0.1-1.2); Monocytes Percent Auto 7.7 % (2-11); Neutrophils Absolute Auto 5.3 X10*3/uL (2.0-8.3); Neutrophils Percent Auto 57.1 % (45-73); Platelet Count 224 X10*3/uL (160-400); Red Blood Count 4.41 X10*6/uL (4.60-5.80); White Blood Count 9.2 X10*3/uL (4.8-10.8)
[2021-01-02 01:54] LABS: Glucose Urine UA NEG (NEG); Leukocyte Esterase Urine NEG (NEG); Nitrite Urine NEG (NEG); Specific Gravity - Urine 1.025 (1.005-1.025); Urine Blood NEG (NEG); Urine Ketones NEG (NEG); Urine Protein NEG (NEG-TRACE)
[2021-01-02 01:57] LABS: Appearance Urine CLEAR; Color Urine YELLOW
[2021-01-02 02:15] LABS: Alanine Aminotransferase 20 U/L (0-40); Albumin Level 4.1 g/dL (3.5-5.0); Alkaline Phosphatase 74 U/L (39-117); Anion Gap 10 (12-20); Aspartate Amino Transferase 20 U/L (5-37); Bilirubin Direct 0.3 mg/dL (0.0-0.5); Bilirubin Total 0.8 mg/dL (0.0-1.0); Blood Urea Nitrogen 14 mg/dL (9-16); Calcium 9.1 mg/dL (8.4-10.2); Carbon Dioxide 25 mmol/L (22-29); Chloride 107 mmol/L (96-108); Estimated Glomerular Filt Rate > 60; Glucose Random 92 mg/dL (60-115); Lipase 26 U/L (8-78); Potassium 4.1 mmol/L (3.3-5.1); Sodium 138 mmol/L (135-145); Total Protein 6.7 g/dL (6.5-8.0)
[2021-01-02 02:19] VITALS: BP 105/74; PULSE 76; RESP 18; TEMP 36.2; O2SAT 99; BMI 16.0
--- NOTE | 2021-01-02 04:42 | PC.NURSE ---
THIS RN WAS MADE AWARE PT WAS HEARD TO BE SAYING THIS IS BULLSHIT FROM THE ROOM. THIS RN WENT INTO ROOM THE CHARGE NURSE AND ATTEMPTED TO REASSURE PT THAT WE WERE WAITING FOR DOC TO COME ASSESS PT, EXPLAINING UNFORTUNATELY THE ACUITY IN THE ED WAS HIGH. PT REPLIED WITH BIG FUCKING DEAL, I DONT GIVE A SHIT ABOUT THE OTHER PATIENTS, I CARE ABOUT ME. PT VOICED CONCERN THAT HE DID NOT HAVE A PILLOW, THIS RN OFFERED A PILLOW, PT REPLIED 'NOW YOU WANT TO GIVE ME A FUCKING PILLOW THIS RN OFFERED ICE PACK OR HOT PACK, PT STATES I DONT WANT THAT SHIT, I WANT MEDS. 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 PT STATED BIG FUCKING DEAL, GOOD FOR YOU. PT WAS OFFERED IBUPROFEN OR TYLENOL AND PT STATES I DONT WANT THAT SHIT MD AWARE.
--- NOTE | 2021-01-02 05:00 | ED_ITS ---
HPI - Back Pain/Injury General Chief Complaint: Back Pain/Injury Stated Complaint: back pain Time Seen by Provider: 01/02/21 05:00 Source: patient Mode of arrival: ambulatory History of Present Illness HPI Narrative: 35-year-old male with acute on chronic back pain presentation without evidence of bowel or bladder dysfunction, denies radiation into either lower extremity, denies fevers/chills/numbness in the groin area. Patient states he is had this ongoing pain for over a year and that he feels like he is not getting any significant help. Related Data Previous Rx's Medication Instructions Recorded amoxicillin-pot clavulanate 1 tab PO BID #14 tab 06/24/20 [Augmentin] omeprazole 40 mg PO DAILY #30 cap 06/24/20 docusate sodium [Colace] 100 mg PO BID #30 cap 06/25/20 nicotine 7 mg TRANSDERMAL DAILY 28 Days #28 06/25/20 ea oxycodone 5 mg PO Q3H PRN 7 Days #30 tab 06/25/20 ketorolac 10 mg PO Q6H PRN 5 Days #20 tab 01/02/21 Allergies Allergy/AdvReac Type Severity Reaction Status Date / Time No Known Allergies Allergy Unverified 06/23/20 04:46 Review of Systems Review of Systems: Pertinent positives and negatives as stated in HPI 10 point review systems otherwise negative. [facility] Past Medical History Source: nursing notes reviewed Medical History Adopted Kidney stone Surgical History History of ureter stent Status post gastric surgery Family History Family History Mother No problems noted. Father No problems noted. Social History Social History Alcohol intake: current Alcohol intake frequency: holidays/special occasions only Alcohol type: hard liquor Patient Tobacco Use Status: Current everyday Tobacco user Cigarettes Per Day: 5 Smoked in Last 30 Days: Yes Substance Use Type: Marijuana Substance Use Frequency: Occasionally Last Used Substance: Days (ago) Any prior treatment program specific to substance use: No Advance Directives: No service: No Current occupational status: employed Physical Exam Vital Signs: Vital Signs: Last Vital Signs Temp 97.2 F 01/02/21 02:19 Pulse 66 01/02/21 05:07 Resp 16 01/02/21 05:07 BP 112/77 01/02/21 05:07 Pulse Ox 100 01/02/21 05:07 Body Mass Index 16.0 VITAL SIGNS: Reviewed. GENERAL: Well developed, well nourished, in no acute distress. HEAD: Normocephalic/atraumatic EYES: PERRLA, EOMI OROPHARYNX: no oral lesions noted, posterior pharynx clear LUNGS: Normal breath sounds. No adventitious sounds or accessory muscle use. SpO2<100> CARDIOVASCULAR: Regular rate and rhythm without noted murmurs ABDOMEN: Soft, non-tender, non-distended with bowel sounds. BACK: No midline vertebral tenderness minimal paraspinal tenderness, straight leg test negative SKIN: Inspection of the skin reveals no rashes NEUROLOGIC: Alert and oriented x 4. Strength and sensation to light touch were grossly intact x 4. Course Course Course Narrative: 35-year-old male with history and clinical presentation consistent with acute on chronic back pain and low clinical suspicion for any infectious or cauda equina etiologies. Review of all investigations without acute findings and on re-evaluation after p atient received combination analgesics he reports almost complete resolution of his back discomfort and will be discharged in stable condition with instructions to follow-up with his primary care provider for further discussion regarding possible physical therapy. MDM - Back Pain/Injury Lab Data Result diagrams: 01/02/21 01:47 01/02/21 01:47 Labs: Lab Results 01/02/21 01/02/21 01/02/21 Range/Units 01:47 01:47 01:47 WBC 9.2 (4.8-10.8) X10*3/uL RBC 4.41 L (4.60-5.80) X10*6/uL Hgb 14.2 (14.0-18.0) g/dl Hct 42.2 (42-52) % MCV 95.7 (80-98) fL MCH 32.2 (27.0-33.0) pg MCHC 33.6 (31.0-36.0) g/dl RDW 13.0 (11.0-16.0) % Plt Count 224 (160-400) X10*3/uL MPV 9.9 (9.4-12.4) fL Immature Gran % (Auto) 0.2 (0.0-0.4) % Neut % (Auto) 57.1 (45-73) % Lymph % (Auto) 32.4 (20-40) % [place] % (Auto) 7.7 (2-11) % Eos % (Auto) 2.3 (0-4) % Baso % (Auto) 0.3 (0-2) % Lymph # (Auto) 3.0 (1.2-4.9) X10*3/uL [place] # (Auto) 0.7 (0.1-1.2) X10*3/uL Eos # (Auto) 0.2 (0.0-0.4) X10*3/uL Baso # (Auto) 0.0 (0.0-0.2) X10*3/uL Abs Immat Gran (auto) 0.02 (0.00-0.03) X10*3/uL Absolute Neuts (auto) 5.3 (2.0-8.3) X10*3/uL Absolute Nucleated RBC 0.000 (0.0-0.012) X10*3/uL Nucleated RBC % (auto) 0.0 (0.0-0.2) /100WBC Sodium 138 (135-145) mmol/L Potassium 4.1 (3.3-5.1) mmol/L Chloride 107 (96-108) mmol/L Carbon Dioxide 25 (22-29) mmol/L Anion Gap 10 L (12-20) BUN 14 (9-16) mg/dL Creatinine 1.01 (0.5-1.4) mg/dL Estim Creat Clear Calc TNP Estimated GFR > 60 Random Glucose 92 D (60-115) mg/dL Calcium 9.1 (8.4-10.2) mg/dL Total Bilirubin 0.8 (0.0-1.0) mg/dL Direct Bilirubin 0.3 (0.0-0.5) mg/dL AST 20 D (5-37) U/L ALT 20 (0-40) U/L Alkaline Phosphatase 74 (39-117) U/L Total Protein 6.7 (6.5-8.0) g/dL Albumin 4.1 (3.5-5.0) g/dL Lipase 26 (8-78) U/L Urine Color YELLOW Urine Appearance CLEAR Urine pH 6.0 (5.0-8.0) Ur Specific [place] 1.025 (1.005-1.025) Urine Protein NEG (NEG-TRACE) MG/DL Urine Glucose (UA) NEG (NEG) MG/DL Urine Ketones NEG (NEG) MG/DL Urine Blood NEG (NEG) Urine Nitrite NEG (NEG) Ur Leukocyte Esterase NEG (NEG) Discharge Plan Discharge Clinical Impression: Back pain Patient Disposition: Home, Self-Care Instructions: Back Pain (ED), Lower Back Exercises (ED) Additional Instructions: 1. You need to continue with your omeprazole as prescribed. 2. Tylenol 1000 mg, orally, every 6 hours as needed for pain control. Do not exceed 4000 mg within 24 hours. 3. Lidocaine patch, this is available [id number], and should be apply to area of maximal tenderness as directed on the outside packaging. 4. Please follow-up with your primary care provider in the next 2-3 days for re- evaluation and further outpatient management. Return to the ER for acute worsening of your symptoms. Prescriptions: New ketorolac 10 mg tablet 10 mg PO Q6H PRN (Reason: pain) 5 Days Qty: 20 RF: 0 No Action omeprazole 40 mg capsule,delayed release(DR/EC) 40 mg PO DAILY Qty: 30 RF: 0 amoxicillin-pot clavulanate [Augmentin] 500-125 mg tablet 1 tab PO BID Qty: 14 RF: 0 nicotine 7 mg/24 hr Patch 24 Hour 7 mg transdermal DAILY 28 Days Qty: 28 RF: 1 oxycodone 5 mg Tablet 5 mg PO Q3H PRN (Reason: Pain, Moderate (Pain Scale 4-6) 7 Days Qty: 30 RF: 0 docusate sodium [Colace] 100 mg capsule 100 mg PO BID Qty: 30 RF: 1 Referrals: Physician,Unknown [Primary Care Provider] - 2 days
[2021-01-02 05:07] VITALS: BP 112/77; PULSE 66; RESP 16; O2SAT 100
--- NOTE | 2021-01-02 05:09 | PC.NURSE ---
pt skin pink warm and dry. vitals stable, no s/s of resp distress. pain level unchanged, pt states anti inflamatory and percocet help his pain.
[2021-01-02] MEDS: Ketorolac Tromethamine 15 MG/ML VIAL IM (05:22)
--- NOTE | 2021-01-02 05:25 | PC.NURSE ---
THIS RN RECEIVED A CALL ASKING TO SPEAK TO THE CHARGE NURSE RE: THIS PATIENTS CARE. A FEMALE NAMED CHAI WAS CALLING RE:THIS PATIENTS CARE. THIS RN EXPLAINED SINCE THIS PT WAS A/O AND SPEAKING IN FULL CLR SENTENCES, MAKING HIS OWN DECISIONS IT WOULD BE VIOLATING HIPPA. THIS FEMALE CALLER THAN STATED SHE WAS CONCERNED THAT NO ONE HAD BEEN IN TO SEE THIS PT, NO ONE HAD OFFERED HIM CARE, MEDICATION, OR A PILLOW, AND NO ONE HAD BEEN IN THE ROOM. THIS CONCERN WAS STATED AFTER THIS RN HAD BEEN AT BEDSIDE (SEE PREVIOUS NOTE), HAD BEEN AT BEDSIDE W/PT, AND PRIMARY NURSE DARRON HAD BEEN IN W/PT SEVERAL TIMES. THIS RN WENT TO BEDSIDE WITH FEMALE CALLER ON THE WIRELESS PHONE TO EXPLAIN I COULD NOT GIVE INFORMATION, THE PATIENT HAD THIS SAME FEMALE CALLER ON FACETIME. PT WAS VERY VERBALLY ABUSIVE TO THIS RN,STATING SOMEONE ONLY CAME IN BECAUSE I WAS TALKING SHEILA OJEDA AWARE
== END 2021-01-02 07:34 | disposition home or self-care (01) ==
PROVIDERS: Emergency Provider Student in an Organized Health Care Education/Training Program
DX: M54.9 Dorsalgia, unspecified (principal)
CPT/HCPCS: 36415; 80048; 80076; 81003; 83690; 85025; 96372; 99284; J1885

== ENCOUNTER 2021-09-16 19:10 | Emergency (ER) | payer OTHER, SELFPAY ==
--- NOTE | ~2021-09-16 | CT_ITS ---
EXAMINATION: CT ABDOMEN AND PELVIS WITH CONTRAST CLINICAL INFORMATION: Abdominal pain/epigastric pain COMPARISON: 09/24/2020, CT abdomen pelvis TECHNIQUE: Multidetector volumetric images were obtained from the superior aspect of the liver through the pubic symphysis following administration 85 mL of Omnipaque 350 intravenous contrast. Sagittal and coronal reformatted images were obtained on the technologist's workstation. Oral contrast: No This CT examination was performed using dose optimization techniques as appropriate, variously including the following: *Automated exposure control *Adjustment of mA and/or kV according to patient size (this includes techniques or standardized protocols for targeted exams where dose is matched to indication/reason for exam; i.e. extremities or head) *Use of iterative reconstruction technique DLP: 285 mGy-cm FINDINGS: LUNG BASES: Some mild emphysematous changes are seen at the lung bases with some peripheral bullae. LIVER, GALLBLADDER, AND BILIARY TREE: The liver is normal in size, shape, and attenuation. No focal hepatic lesion or biliary ductal dilatation is present. The gallbladder is unremarkable with no evidence of radiopaque gallstones, gallbladder wall thickening, or obvious pericholecystic inflammatory changes. PANCREAS: Unremarkable. SPLEEN: Unremarkable. ADRENAL GLANDS: Unremarkable. KIDNEYS AND URETERS: The kidneys are normal in size, shape, and attenuation. No hydronephrosis, hydroureter, or calculi seen. No perinephric stranding. BLADDER: Unremarkable. GASTROINTESTINAL TRACT: There is thickening of the gastric fundus probably secondary to underdistention. The small and large bowel are unremarkable. The appendix is unremarkable. ABDOMINAL WALL: No significant hernia is appreciated. LYMPH NODES: No retroperitoneal lymphadenopathy. VASCULAR: Unremarkable. PELVIC VISCERA: There is probably mild, although the entire prostate is not included on this exam OSSEOUS STRUCTURES: Degenerative changes present predominantly at L4-L5. No bony destructive lesions. Some minimal sclerotic change present in the left iliac bone adjacent to the SI joint. CT/CT abdomen pelvis w con IMPRESSION: A cause for the patient's acute abdominal/epigastric pain has not been found. Incidental findings as above. Fleischner guidelines were followed.
[2021-09-16 19:45] VITALS: BP 125/85; PULSE 110; RESP 19; TEMP 36.8; O2SAT 98; BMI 18.9
[2021-09-16 20:17] LABS: MANUAL DIFF FLAG NO
[2021-09-16 20:20] LABS: Basophils Percent Auto 0.4 % (0-2); Eosinophils Absolute Auto 0.2 X10*3/uL (0.0-0.4); Eosinophils Percent Auto 2.4 % (0-4); Hematocrit 45.2 % (42.0-52.0); Imm Gran Abs Auto 0.01 X10*3/uL (0.00-0.03); Imm Gran Pct Auto 0.1 % (0.0-0.4); Lymphocytes Absolute Auto 2.1 X10*3/uL (1.2-4.9); Lymphocytes Percent Auto 25.2 % (20-40); Mean Corpuscular HGB Conc 33.2 g/dl (31.0-36.0); Mean Corpuscular Hemoglobin 31.9 pg (27.0-33.0); Mean Corpuscular Volume 96.2 fL (80.0-98.0); Mean Platelet Volume 10.1 fL (9.4-12.4); Monocytes Absolute Auto 0.5 X10*3/uL (0.1-1.2); Monocytes Percent Auto 6.6 % (2-11); Neutrophils Absolute Auto 5.4 x10*3/uL (2.0-8.3); Neutrophils Percent Auto 65.3 % (45-73); Platelet Count 233 X10*3/uL (160-400); Red Cell Distribution Width 13.7 % (11.0-16.0); White Blood Count 8.2 X10*3/uL (4.8-10.8)
[2021-09-16 20:36] LABS: Alanine Aminotransferase 21 U/L (0-40); Albumin Level 4.1 g/dL (3.5-5.0); Alkaline Phosphatase 76 U/L (39-117); Anion Gap 10 (12-20); Aspartate Amino Transferase 16 U/L (5-37); Bilirubin Total 0.4 mg/dL (0.0-1.0); Blood Urea Nitrogen 11 mg/dL (9-16); Calcium 9.2 mg/dL (8.4-10.2); Carbon Dioxide 27 mmol/L (22-29); Chloride 106 mmol/L (96-108); Creatinine Clr Calc Pharmacy 84.7; Estimated Glomerular Filt Rate > 60; Glucose Random 97 mg/dL (60-115); Potassium 4.2 mmol/L (3.3-5.1); Sodium 139 mmol/L (135-145); Total Protein 6.6 g/dL (6.5-8.0)
[2021-09-16 21:56] LABS: Lipase 25 U/L (8-78)
--- NOTE | 2021-09-16 22:19 | ECG_ITS ---
Test Reason : ABDOMINAL PAIN Blood Pressure : / mmHG Vent. Rate : 062 BPM Atrial Rate : 062 BPM P-R Int : 112 ms QRS Dur : 098 ms QT Int : 382 ms P-R-T Axes : 078 063 060 degrees QTc Int : 387 ms Normal sinus rhythm Possible Lateral infarct , age undetermined - could be non-specific finding. Borderline ECG No previous ECGs available Referred By: Orlando Wheat Electronically Signed By:SUZANNE ARCHER
--- NOTE | 2021-09-16 22:19 | ED.ABDPAIN ---
HPI - Abdominal Pain General Chief Complaint: Abdominal Pain Stated Complaint: abd pain Time Seen by Provider: 09/16/21 21:34 Source: patient Mode of arrival: ambulatory Limitations: no limitations History of Present Illness HPI narrative: 36-year-old male with a past medical history of renal stone, perforation S/P laparoscopic Corky patch repair on 06/23/2020 presenting to the ED complaining of worsening abdominal pain 3 days.. Patient tells me he has been eating and drinking however less than usual. He tells me he is also having some chest tightness that started after heavy lifting. Three days ago. He tells me is intermittent in nature, nonradiating. He denies fevers, chills, shortness of breath, dysuria/hematuria, constipation/diarrhea. MD elicited complaint: abdominal pain Pertinent past history: none Onset (ago): day(s) (3) Pain Consistency: constant Location: epigastric Severity: severe Quality: cramping Radiation: none Migration to: no migration Exacerbating factors: nothing Relieving factors: nothing Associated symptoms: denies other symptoms Related Data Previous Rx's Medication Instructions Recorded amoxicillin 500 mg-potassium 1 tab PO BID #14 tab 06/24/20 clavulanate 125 mg tablet (Augmentin) omeprazole 40 mg capsule,delayed 40 mg PO DAILY #30 cap 06/24/20 release docusate sodium 100 mg capsule 100 mg PO BID #30 cap 06/25/20 (Colace) nicotine 7 mg/24 hr daily 7 mg TRANSDERMAL DAILY 28 Days #28 06/25/20 transdermal patch ea oxycodone 5 mg tablet 5 mg PO Q3H PRN 7 Days #30 tab 06/25/20 ketorolac 10 mg tablet 10 mg PO Q6H PRN 5 Days #20 tab 01/02/21 Allergies Allergy/AdvReac Type Severity Reaction Status Date / Time seafood Allergy Unknown Verified 09/16/21 20:45 Review of Systems Review of Systems Constitutional : No Weight loss, No Fever, No Chills, No Fatigue, No Malaise ENT/Mouth : No sore throat, No Rhinorrhea Eyes: No Eye Pain, No Swelling, No Redness Cardiovascular : No Chest Pain, No SOB, No Dyspnea on Exertion, No Orthopnea, No Edema, No Palpitations Respiratory : No Cough, No Sputum, No Wheezing Gastrointestinal : No Nausea, No Vomiting, No Diarrhea, No Constipation, No abdominal Pain, No Hematochezia, No Melena Genitourinary : No Dysuria, No Urinary Frequency, No Hematuria, Musculoskeletal : No joint pain, No Myalgias, No Joint Swelling Skin : No Skin Lesions, No rash Neuro : No Weakness, No Numbness, No Dizziness, No Headache Psych : No Anxiety/Panic, No Depression All other systems reviewed and are negative Yes all other systems are reviewed and are negative [facility] Past Medical History Attestation statement: The following information was validated with the patient. Source: old records reviewed and nursing notes reviewed Medical History Adopted Kidney stone Surgical History History of ureter stent Status post gastric surgery Family History Family History Mother No problems noted. Father No problems noted. Social History Social History Alcohol intake: current Alcohol intake frequency: holidays/special occasions only Alcohol type: hard liquor Patient Tobacco Use Status: Current everyday Tobacco user Cigarettes Per Day: 5 Substance Use Type: Marijuana Advance Directives: No service: No Current occupational status: employed Physical Exam ED Vital Signs: Vital Signs - 24 hr 09/16/21 19:45 09/16/21 23:22 Temperature 98.3 F 98.4 F Pulse Rate 110 H 65 Respiratory Rate 19 16 Blood Pressure 125/85 135/73 Pulse Oximetry 98 99 BMI result Body Mass Index 18.9 Vital signs stable Appearance: Alert.? Oriented X3.? No acute distress.? Head: Normocephalic, atraumatic, no step-offs or deformities Eyes: Pupils equal, round and reactive to light.? ENT: Pharynx normal.? Neck: Normal inspection.? Neck supple.? CVS: Normal heart rate and rhythm.? Pulses normal.? Respiratory: No respiratory distress.? Breath sounds normal.? Abdomen: Soft and nontender.? Skin: Skin warm and dry.? Normal skin color.? Normal skin turgor.? Extremities: No lower extremity edema.? No calf ttp. 5/5 strength to bilateral upper and lower extremities Back: No midline tenderness, no C-spine tenderness, full range of motion, no CVA tenderness bilaterally Neuro: Oriented X 3.? No motor deficit.? No sensory deficit. CN 2-12 intact Course Reevaluation(s) Reevaluation #1: CBC within normal limits. Chemistry with no acute electrolyte abnormalities. Troponin negative EKG nonischemic unlikely ACS. Lipase within normal limits unlikely pancreatitis. CT of the abdomen pelvis with no acute findings. Patient reports that his abdominal pain improved after GI cocktail. He tells me he is still having some pain. However better than on arrival. At this time patient will be discharged home with GI follow-up. Patient's workup negative. He tells me that he has been having the same type of pain for months so I advised him to follow-up with a specialist. Urine negative. Patient will follow-up with GI and PCP. Time: 00:24 MDM - Abdominal Pain MDM Narrative Medical decision making narrative: 222 36 yo m presents w/ epigastric pain and cp X3 days. PE benign Plan- labs, imaging. Will rule out ACS although unlikely. ?Concern for surgical complication/perforation vs diverticulitis vs cholecystitis/cholelithiasis vs pancreatitis Medical Records Attestation: I reviewed the patient's medical records. Lab Data Attestation: I reviewed the patient's lab results. Result diagrams: 09/16/21 20:13 09/16/21 20:12 Labs: Lab Results 09/16/21 09/16/21 09/16/21 Range/Units 20:12 20:12 20:13 WBC 8.2 (4.8-10.8) X10*3/uL RBC 4.70 (4.60-5.80) X10*6/uL Hgb 15.0 (14.0-18.0) g/dl Hct 45.2 (42.0-52.0) % MCV 96.2 (80.0-98.0) fL MCH 31.9 (27.0-33.0) pg MCHC 33.2 (31.0-36.0) g/dl RDW 13.7 (11.0-16.0) % Plt Count 233 (160-400) X10*3/uL MPV 10.1 (9.4-12.4) fL Immature Gran % (Auto) 0.1 (0.0-0.4) % Neut % (Auto) 65.3 (45-73) % Lymph % (Auto) 25.2 (20-40) % [place] % (Auto) 6.6 (2-11) % Eos % (Auto) 2.4 (0-4) % Baso % (Auto) 0.4 (0-2) % Lymph # (Auto) 2.1 (1.2-4.9) X10*3/uL [place] # (Auto) 0.5 (0.1-1.2) X10*3/uL Eos # (Auto) 0.2 (0.0-0.4) X10*3/uL Baso # (Auto) 0.0 (0.0-0.2) X10*3/uL Abs Immat Gran (auto) 0.01 (0.00-0.03) X10*3/uL Absolute Neuts (auto) 5.4 (2.0-8.3) x10*3/uL Absolute Nucleated RBC 0.000 (0.0-0.012) X10*3/uL Nucleated RBC % (auto) 0.0 (0.0-0.2) /100WBC Sodium 139 (135-145) mmol/L Potassium 4.2 (3.3-5.1) mmol/L Chloride 106 (96-108) mmol/L Carbon Dioxide 27 (22-29) mmol/L Anion Gap 10 L (12-20) BUN 11 (9-16) mg/dL Creatinine 1.07 (0.5-1.4) mg/dL Estim Creat Clear Calc 84.7 Estimated GFR > 60 Random Glucose 97 (60-115) mg/dL Calcium 9.2 (8.4-10.2) mg/dL Total Bilirubin 0.4 (0.0-1.0) mg/dL AST 16 (5-37) U/L ALT 21 (0-40) U/L Alkaline Phosphatase 76 (39-117) U/L Troponin I High Sens < 3.5 (<3.5-35.0) ng/L Total Protein 6.6 (6.5-8.0) g/dL Albumin 4.1 (3.5-5.0) g/dL Lipase 25 (8-78) U/L Urine Color Urine Appearance Urine pH (5.0-8.0) Ur Specific [place] (1.005-1.025) Urine Protein (NEG-TRACE) MG/DL Urine Glucose (UA) (NEG) MG/DL Urine Ketones (NEG) MG/DL Urine Blood (NEG) Urine Nitrite (NEG) Ur Leukocyte Esterase (NEG) 09/16/21 Range/Units 23:53 WBC (4.8-10.8) X10*3/uL RBC (4.60-5.80) X10*6/uL Hgb (14.0-18.0) g/dl Hct (42.0-52.0) % MCV (80.0-98.0) fL MCH (27.0-33.0) pg MCHC (31.0-36.0) g/dl RDW (11.0-16.0) % Plt Count (160-400) X10*3/uL MPV (9.4-12.4) fL Immature Gran % (Auto) (0.0-0.4) % Neut % (Auto) (45-73) % Lymph % (Auto) (20-40) % [place] % (Auto) (2-11) % Eos % (Auto) (0-4) % Baso % (Auto) (0-2) % Lymph # (Auto) (1.2-4.9) X10*3/uL [place] # (Auto) (0.1-1.2) X10*3/uL Eos # (Auto) (0.0-0.4) X10*3/uL Baso # (Auto) (0.0-0.2) X10*3/uL Abs Immat Gran (auto) (0.00-0.03) X10*3/uL Absolute Neuts (auto) (2.0-8.3) x10*3/uL Absolute Nucleated RBC (0.0-0.012) X10*3/uL Nucleated RBC % (auto) (0.0-0.2) /100WBC Sodium (135-145) mmol/L Potassium (3.3-5.1) mmol/L Chloride (96-108) mmol/L Carbon Dioxide (22-29) mmol/L Anion Gap (12-20) BUN (9-16) mg/dL Creatinine (0.5-1.4) mg/dL Estim Creat Clear Calc Estimated GFR Random Glucose (60-115) mg/dL Calcium (8.4-10.2) mg/dL Total Bilirubin (0.0-1.0) mg/dL AST (5-37) U/L ALT (0-40) U/L Alkaline Phosphatase (39-117) U/L Troponin I High Sens (<3.5-35.0) ng/L Total Protein (6.5-8.0) g/dL Albumin (3.5-5.0) g/dL Lipase (8-78) U/L Urine Color YELLOW Urine Appearance CLEAR Urine pH 6.5 (5.0-8.0) Ur Specific [place] 1.010 (1.005-1.025) Urine Protein NEG (NEG-TRACE) MG/DL Urine Glucose (UA) NEG (NEG) MG/DL Urine Ketones 5 (NEG) MG/DL Urine Blood NEG (NEG) Urine Nitrite NEG (NEG) Ur Leukocyte Esterase NEG (NEG) ECG Data Attestation: I personally reviewed and interpreted this ECG as follows: ECG interpretation date: 09/16/21 ECG interpretation time: 23:51 Prior ECG tracings: not available for review Interpretation: Ventricular rate of 62 HI normal, QT/QTC normal. EKG shows normal sinus rhythm no ST elevations or inversions concerning for ischemia. No previous EKGs to compare with. Critical Care Time Critical Care Time Critical Care Time: No Discharge Plan Discharge Clinical Impression: Epigastric abdominal pain Patient Disposition: Home, Self-Care Instructions: Abdominal Pain (ED) Additional Instructions: Take your medications as prescribed. If you were prescribed antibiotics today, it is important that you take your medication to their entirety, do not skip any doses, do not finish them early. Follow-up with your primary care provider this week. Follow-up with GI for further evaluation of this pain Return to the emergency department with new or worsening symptoms. Such as fevers, chills, chest pain, shortness of breath, nausea, vomiting, dizziness, headache, vision changes, lethargy In case of emergency call 911 Prescriptions: No Action omeprazole 40 mg capsule,delayed release(DR/EC) 40 mg PO DAILY Qty: 30 0RF amoxicillin-pot clavulanate [Augmentin] 500-125 mg tablet 1 tab PO BID Qty: 14 0RF nicotine 7 mg/24 hr Patch 24 Hour 7 mg transdermal DAILY 28 Days Qty: 28 1RF oxycodone 5 mg Tablet 5 mg PO Q3H PRN (Reason: Pain, Moderate (Pain Scale 4-6) 7 Days Qty: 30 0RF docusate sodium [Colace] 100 mg capsule 100 mg PO BID Qty: 30 1RF ketorolac 10 mg tablet 10 mg PO Q6H PRN (Reason: pain) 5 Days Qty: 20 0RF Referrals: Physician,Unknown J [Primary Care Provider] - 2 days Fausto Lewis [Physician] - 1 week Stand Alone Forms: Work/School Release
[2021-09-16 22:50] LABS: Troponin-I High Sensitivity < 3.5 ng/L (<3.5-35.0)
[2021-09-16] MEDS: iohexoL 350 MG/ML 100 ML INFUS..BTL IV (22:56)
[2021-09-16] MEDS: Ketorolac Tromethamine 15 MG/ML VIAL IVPUSH (23:16)
[2021-09-16] MEDS: Ondansetron ODT 4 MG TAB.RAPDIS TRANSLINGU (23:17)
[2021-09-16] MEDS: Magnesium Hydrox/Alum Hydrox 30 ML ORAL.SUSP PO (23:17)
[2021-09-16] MEDS: PHENobarb/Hyoscy/Atropine/Scop 10 ML ELIXIR PO (23:17)
[2021-09-16 23:22] VITALS: BP 135/73; PULSE 65; RESP 16; TEMP 36.9; O2SAT 99
[2021-09-17 00:09] LABS: Appearance Urine CLEAR; Color Urine YELLOW; Glucose Urine UA NEG (NEG); Leukocyte Esterase Urine NEG (NEG); Nitrite Urine NEG (NEG); PH 6.5 (5.0-8.0); Urine Blood NEG (NEG); Urine Ketones 5 MG/DL (NEG); Urine Protein NEG (NEG-TRACE)
== END 2021-09-17 00:38 | disposition home or self-care (01) ==
PROVIDERS: Physician Assistant; Student in an Organized Health Care Education/Training Program; Emergency Provider Internal Medicine
DX: R10.13 Epigastric pain (principal); Z87.442 Personal history of urinary calculi; F17.200 Nicotine dependence, unspecified, uncomplicated; F12.90 Cannabis use, unspecified, uncomplicated
CPT/HCPCS: 36415; 74177; 80053; 81003; 83690; 84484; 85025; 93005; 96374; 99284; J1885; Q9967

== ENCOUNTER 2021-09-21 14:41 | Emergency (ER) | payer OTHER, SELFPAY ==
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
[2021-09-21 15:00] VITALS: BP 119/78; PULSE 87; RESP 18; TEMP 36.6; O2SAT 100; BMI 16.6
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
[2021-09-21] MEDS: Ketorolac Tromethamine 30 MG/ML VIAL IM (15:32)
== END 2021-09-21 16:43 | disposition home or self-care (01) ==
PROVIDERS: Emergency Provider Emergency Medicine
DX: S39.012A Strain of muscle, fascia and tendon of lower back, initial encounter (principal); S16.1XXA Strain of muscle, fascia and tendon at neck level, initial encounter; S60.222A Contusion of left hand, initial encounter; S60.212A Contusion of left wrist, initial encounter; V43.52XA Car driver injured in collision with other type car in traffic accident, initial encounter; Y93.89 Activity, other specified; Y92.414 Local residential or business street as the place of occurrence of the external cause; Y99.9 Unspecified external cause status
CPT/HCPCS: 72100; 72125; 73110; 73130; 96372; 99283; 99284; J1885

== ENCOUNTER 2022-03-24 12:18 | Emergency (ER) | payer OTHER, SELFPAY ==
--- NOTE | ~2022-03-24 | CT_ITS ---
EXAMINATION: CT ABDOMEN AND PELVIS WITH CONTRAST CLINICAL INFORMATION: Upper abdominal pain COMPARISON: CT abdomen pelvis 09/16/2021 TECHNIQUE: Multidetector volumetric images were obtained from the superior aspect of the liver through the pubic symphysis following administration 85 mL of Omnipaque 350 intravenous contrast. Sagittal and coronal reformatted images were obtained on the technologist's workstation. Oral contrast: No This CT examination was performed using dose optimization techniques as appropriate, variously including the following: *Automated exposure control *Adjustment of mA and/or kV according to patient size (this includes techniques or standardized protocols for targeted exams where dose is matched to indication/reason for exam; i.e. extremities or head) *Use of iterative reconstruction technique DLP: 335 mGy-cm FINDINGS: LUNG BASES: The visualized lung bases are unremarkable. LIVER, GALLBLADDER, AND BILIARY TREE: The liver is normal in size, shape, and attenuation. No focal hepatic lesion or biliary ductal dilatation is present. The gallbladder is unremarkable with no evidence of radiopaque gallstones, gallbladder wall thickening, or obvious pericholecystic inflammatory changes. PANCREAS: Unremarkable. SPLEEN: Unremarkable. ADRENAL GLANDS: Unremarkable. KIDNEYS AND URETERS: Symmetric nephrograms. No hydronephrosis. No renal lesion. Punctate 2 mm nonobstructing left lower pole renal calculus. No perinephric stranding or collection. BLADDER: Unremarkable. GASTROINTESTINAL TRACT: Mild dilation of the second third portion the duodenum, which is likely transient. Normal aortomesenteric angle. Stomach is nondilated. No other dilated bowel loops. No bowel wall thickening. Normal appendix. No ascites or free air. ABDOMINAL WALL: No significant hernia is appreciated. LYMPH NODES: No lymphadenopathy. VASCULAR: Normal caliber abdominal aorta. PELVIC VISCERA: Unremarkable. OSSEOUS STRUCTURES: Moderate degenerative disc disease at L4-L5. No acute fracture or suspicious osseous lesion. CT/CT abdomen pelvis w IV con IMPRESSION: 1. No acute intra-abdominal process identified. 2. 2 mm nonobstructing left renal calculus.
[2022-03-24 13:39] VITALS: BP 139/87; PULSE 63; RESP 16; TEMP 36.7; O2SAT 97; BMI 17.2
[2022-03-24 14:51] LABS: MANUAL DIFF FLAG NO
[2022-03-24 14:52] LABS: Basophils Percent Auto 0.4 % (0-2); Eosinophils Absolute Auto 0.1 X10*3/uL (0.0-0.4); Hematocrit 45.6 % (42.0-52.0); Hemoglobin 15.1 g/dl (14.0-18.0); Imm Gran Abs Auto 0.03 X10*3/uL (0.00-0.03); Imm Gran Pct Auto 0.4 % (0.0-0.4); Lymphocytes Percent Auto 24.6 % (20-40); Mean Corpuscular HGB Conc 33.1 g/dl (31.0-36.0); Mean Corpuscular Hemoglobin 31.2 pg (27.0-33.0); Mean Corpuscular Volume 94.2 fL (80.0-98.0); Mean Platelet Volume 9.8 fL (9.4-12.4); Monocytes Absolute Auto 0.5 X10*3/uL (0.1-1.2); Monocytes Percent Auto 6.3 % (2-11); Neutrophils Absolute Auto 5.6 x10*3/uL (2.0-8.3); Neutrophils Percent Auto 67.3 % (45-73); Platelet Count 254 X10*3/uL (160-400); Red Blood Count 4.84 X10*6/uL (4.60-5.80); Red Cell Distribution Width 12.7 % (11.0-16.0); White Blood Count 8.2 X10*3/uL (4.8-10.8)
[2022-03-24 15:11] LABS: Alanine Aminotransferase 32 U/L (0-40); Albumin Level 4.5 g/dL (3.5-5.0); Alkaline Phosphatase 76 U/L (39-117); Anion Gap 14 (12-20); Aspartate Amino Transferase 27 U/L (5-37); Bilirubin Total 0.9 mg/dL (0.0-1.0); Blood Urea Nitrogen 13 mg/dL (9-16); Calcium 9.2 mg/dL (8.4-10.2); Carbon Dioxide 25 mmol/L (22-29); Chloride 104 mmol/L (96-108); Creatinine Clr Calc Pharmacy 101.1; Estimated Glomerular Filt Rate > 60; Glucose Random 85 mg/dL (60-115); Lipase 14 U/L (8-78); Potassium 4.4 mmol/L (3.3-5.1); Sodium 139 mmol/L (135-145); Total Protein 7.2 g/dL (6.5-8.0)
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
[2022-03-24 18:37] LABS: Ethanol < 10 mg/dL
[2022-03-24] MEDS: Morphine Sulfate 4 MG/ML CARTRIDGE IVPUSH (18:51)
[2022-03-24] MEDS: Famotidine/PF 20 MG/2 ML VIAL IVPUSH (18:51)
[2022-03-24] MEDS: ondansetron HCL 4 MG/2 ML VIAL IVPUSH (18:51)
[2022-03-24 18:52] VITALS: BP 125/72; PULSE 65; RESP 18; TEMP 36.8; O2SAT 99
[2022-03-24] MEDS: 0.9 % Sodium Chloride 1,000 ML 999 ML IV (18:52)
[2022-03-24 19:49] VITALS: BP 135/73; PULSE 61; RESP 16; TEMP 36.7; O2SAT 98
[2022-03-24] MEDS: iohexoL 350 MG/ML 100 ML INFUS..BTL IV (19:49)
== END 2022-03-24 21:26 | disposition home or self-care (01) ==
PROVIDERS: Emergency Provider Student in an Organized Health Care Education/Training Program
DX: R10.10 Upper abdominal pain, unspecified (principal); Z79.899 Other long term (current) drug therapy; F17.210 Nicotine dependence, cigarettes, uncomplicated; Z71.6 Tobacco abuse counseling
CPT/HCPCS: 36415; 74177; 80053; 82077; 83690; 85025; 96361; 96374; 96375; 99283; 99284; J2270; J2405; Q9967

== ENCOUNTER 2023-04-18 08:14 | Emergency (ER) | payer OTHER, SELFPAY ==
[2023-04-18 08:21] VITALS: BP 129/93; RESP 18; TEMP 36.7; O2SAT 98; BMI 24.4
--- NOTE | 2023-04-18 08:24 | ED.GENADULT ---
HPI - General Adult General Chief complaint: General Medical Stated complaint: Swollen tonsils Time Seen by Provider: 04/18/23 08:18 Source: patient Mode of arrival: ambulatory Limitations: no limitations History of Present Illness HPI narrative: 37 year old male with no significant pmhx presents to the ED today with complaint of sore throat x2 days. States that his tonsils began hurting yesterday and worsened upon waking up this morning. States he had similar symptoms a few years ago after eating at a food truck, does not remember if he was diagnosed with anything. States that he ate at the same food truck 2 days ago and then began having these symptoms. Has been eating and drinking without difficulty. No difficulty swallowing. No sick contacts. Denies history of strep throat. Still has his tonsils. Denies sick contacts. Vaccinations UTD. Denies fever, chills, MORALES, dizziness, eye pain, ear pain, congestion, neck pain, cough, wheezing, SOB, chest pain, N/V, abdominal pain, or LE numbness/weakness/tingling. Related Data Previous Rx's Medication Instructions Recorded amoxicillin 500 mg-potassium 1 tab PO BID #14 tabs 06/24/20 clavulanate 125 mg tablet (Augmentin) omeprazole 40 mg capsule,delayed 40 mg PO DAILY #30 caps 06/24/20 release docusate sodium 100 mg capsule 100 mg PO BID #30 caps 06/25/20 (Colace) nicotine 7 mg/24 hr daily 7 mg transdermal DAILY 28 days #28 06/25/20 transdermal patch ea oxycodone 5 mg tablet 5 mg PO Q3H PRN Pain, Moderate 06/25/20 (Pain Scale 4-6 7 days #30 tabs ketorolac 10 mg tablet 10 mg PO Q6H PRN pain 5 days #20 01/02/21 tabs cyclobenzaprine 10 mg tablet 10 mg PO TID PRN muscle spasm #14 09/21/21 tabs lidocaine 5 % topical patch 1 patch topical DAILY #15 ea 09/21/21 (Lidoderm) phenol 1.4 % mucosal aerosol spray 4 spray mucous membrane Q5H PRN 04/18/23 (Chloraseptic Throat [place]) sore throat #20 mL Allergies Allergy/AdvReac Type Severity Reaction Status Date / Time seafood Allergy Unknown Verified 09/16/21 20:45 Review of Systems Review of Systems: Constitutional: No fever, chills, fatigue, night sweats, weight changes ENT/Mouth: No ear pain, hearing loss, nasal congestion, sinus pain, rhinorrhea, +sore throat Eyes: No eye pain, swelling, redness, vision changes, discharge Cardio: No chest pain, palpitations, DOTY, orthopnea, peripheral edema Pulm: No SOB, cough, sputum, wheezing, dyspnea, hemoptysis GI: No nausea, vomiting, hematemesis, abdominal pain, diarrhea, constipation, hematochezia, melena : No irregular bleeding, dysuria, frequency, urgency, hesitancy, hematuria, flank pain MSK: No back pain, neck pain, joint pain, myalgias Skin: No lesions, rashes Neuro: No weakness, numbness, paresthesias, LOC, dizziness, headache All other systems reviewed and are negative. [facility] Past Medical History Attestation statement: The following information was validated with the patient. Source: old records reviewed and nursing notes reviewed Medical History Adopted Kidney stone Surgical History Status post gastric surgery History of ureter stent Family History Family History Mother No problems noted. Father No problems noted. Social History Social History Alcohol intake: current Alcohol intake frequency: a few times a week Alcohol type: hard liquor Patient Tobacco Use Status: Current everyday Tobacco user Cigarettes Per Day: 5 Smoked in Last 30 Days: Yes Substance Use Type: Marijuana Advance Directives: No service: No Current occupational status: employed Physical Exam ED Vital Signs: Vital Signs - 24 hr 04/18/23 08:21 Temperature 98.1 F Respiratory Rate 18 Blood Pressure 129/93 H Pulse Oximetry 98 Oxygen Delivery Method Room Air BMI result Body Mass Index 24.4 Vital signs stable. Const General: cooperative, no acute distress, alert and awake Orientation/consciousness: patient oriented x3 Limitations: no limitations HENMT Other: + posterior oropharynx mildly erythematous without edema. No tonsillar exudates. Uvula is midline. Speaking in complete sentences and controlling secretions. Head: Yes normal to inspection Ears: hearing grossly normal bilaterally, external ears normal, TM's normal bilaterally, EAC's normal, mastoids normal and no periauricular adenopathy General nose exam: Normal external nose present and Normal nasal mucous membranes and turbinates present Face and sinus: Yes sinuses nontender Mouth: Normal oral and palatal mucosa present Eyes General: appearance normal, both eyes and all related structures Conjunctivae: conjunctivae normal Sclerae: sclerae normal Pupils: Equal, round and reactive pupils present EOM: EOMs intact bilaterally Neck Other: + No cervical lymphadenopathy Neck: Yes normal visual inspection and Yes no meningeal signs Resp Effort & Inspection: normal respiratory effort, able to speak in complete sentences, no respiratory distress and no tripod positioning Auscultation: clear to auscultation bilaterally and no wheezes Cardio Rate: regular rate Rhythm: regular rhythm Peripheral pulses: radial pulses present GI Palpation (GI): Soft to palpation, nontender and no splenomegaly Skin General skin exam: no rashes or lesions noted Neuro General: patient oriented x3, gait normal, moves all extremities and no meningeal signs Cranial nerves: Yes CN's II-XII intact bilaterally and Yes Equal, round and reactive pupils present Gait exam (Neuro): Normal gait present Extrem General: Yes normal to inspection, Yes full ROM, Yes capillary refill normal and Yes no clubbing, cyanosis or edema Course Course Course Narrative: 1002-- Patient tested negative for strep throat, COVID, flu, RSV. No concern for mono at this time. > On re-evaluation of patient he tells me that his throat pain was somewhat relieved with viscous lidocaine. He is tolerating trang jin and water in the ED. I informed patient of negative workup. This is likely a virus that will self resolve. Imaging is not warranted at this time. I advised him to take Tylenol and ibuprofen as needed. I will also send Chloraseptic spray to his pharmacy for throat pain. Discussed strict return precautions. All questions answered at this time. Patient agreeable disposition and stable for discharge. Medications Administered Discontinued Medications Generic Name Dose Route Start Last Admin Trade Name Freq PRN Reason Stop Dose Admin Lidocaine HCl 15 ml 04/18/23 08:36 04/18/23 09:21 Lidocaine Hcl Viscous 2 % 15 Ml Solution MUCOUS MEM 04/18/23 08:37 15 ml ONCE ONE Administration Medical Decision Making Medical Decision Making [facility] Narrative: 37 year old male with no significant pmhx presents to the ED today with complaint of sore throat x2 days. Vital signs are stable, afebrile. patient is nontoxic appearing and in no acute distress. Bilateral EACs WNL. Maxillary sinuses nontender. Posterior oropharynx with mild erythema, no edema. No tonsillar exudates. Uvula is midline. Patient is speaking in complete sentences and controlling secretions. No cervical LAD. Lungs CTA b/l. Skin is without rashes or lesions. Clinical concern for strep throat vs viral syndrome. Unlikely mono, [employer], retropharyngeal abscess, epiglottitis, compromised airway. Plan at this time is to obtain COVID, flu, RSV, strep throat serology, viscous lidocaine, and p.o. trial. Differential Diagnosis Differential Diagnoses: The differential diagnosis associated with the presentation includes As above. Admission/Observation Not indicated. Lab Data [facility] Lab Attestation statement: I reviewed the patient's lab results. As above. Labs: Lab Results 04/18/23 04/18/23 Range/Units 08:30 08:33 Influenza Type A (PCR) NEGATIVE (Negative) Influenza Type B (PCR) NEGATIVE (Negative) RSV RNA Qual (PCR) NEGATIVE (Negative) SARS-CoV-2 RNA (RT-PCR) NEGATIVE (Negative) S. pyogenes GrpA DAVION Negative (Negative) External Record Review External record reviewed: Inpatient record Prescription Management I considered prescription management with: Pain Medication Critical Care Time Critical Care Time Critical Care Time: No Discharge Plan Discharge Clinical Impression: Pharyngitis Patient Disposition: Home, Self-Care Instructions: Pharyngitis (ED), Upper Respiratory Infection (ED) Additional Instructions: You tested negative for COVID, flu, RSV and strep throat. This is likely a viral infection. Treatment for this is symptomatic. I have sent Chloraseptic spray to your pharmacy. You can spray this to the back of your throat to help with pain or discomfort. You may also take Tylenol or ibuprofen as needed. If you begin having trouble controlling your secretions, difficulty breathing or your symptoms persist or worsen, return to the emergency department. In the case of an emergency call 911. Prescriptions: New Chloraseptic Throat [place] 1.4 % aerosol,spray 4 spray mucous membrane Q5H PRN (Reason: sore throat) Qty: 20 0RF No Action omeprazole 40 mg capsule,delayed release(DR/EC) 40 mg PO DAILY Qty: 30 0RF amoxicillin-pot clavulanate [Augmentin] 500-125 mg tablet 1 tab PO BID Qty: 14 0RF nicotine 7 mg/24 hr Patch 24 Hour 7 mg transdermal DAILY 28 Days Qty: 28 1RF oxycodone 5 mg Tablet 5 mg PO Q3H PRN (Reason: Pain, Moderate (Pain Scale 4-6) 7 Days Qty: 30 0RF docusate sodium [Colace] 100 mg capsule 100 mg PO BID Qty: 30 1RF ketorolac 10 mg tablet 10 mg PO Q6H PRN (Reason: pain) 5 Days Qty: 20 0RF lidocaine [Lidoderm] 5 % adhesive patch,medicated 1 patch topical DAILY Qty: 15 0RF Rx Instructions: leave on most painful area for up to 12 hrs cyclobenzaprine 10 mg tablet 10 mg PO TID PRN (Reason: muscle spasm) Qty: 14 0RF Referrals: Physician,Unknown J [Primary Care Provider] - Stand Alone Forms: Work/School Release Interventions: ED Discharge Assessment Last Done: 04/18/23 10:10 Discharge Date/Time: 04/18/23 10:13
--- NOTE | 2023-04-18 08:25 | PC.NURSE ---
Patient reports throat/tonsil pain that started yesterday and was worse when he woke up this morning. Denies fever, chills, sob,or headache.
[2023-04-18 08:45] LABS: IDNOW Serial# 08D9AD1C; Strep A Nucleic Acid Negative (Negative)
[2023-04-18] MEDS: Lidocaine HCl Viscous 2 % 15 ML SOLUTION MUCOUS MEM (09:21)
[2023-04-18 09:32] LABS: Influenza A PCR NEGATIVE (Negative); Influenza B PCR NEGATIVE (Negative); Resp Syncy Virus RNA Qual PCR NEGATIVE (Negative); SARS COV2 PCR INHOUSE NEGATIVE (Negative)
== END 2023-04-18 10:13 | disposition home or self-care (01) ==
PROVIDERS: Physician Assistant Medical; Emergency Provider Student in an Organized Health Care Education/Training Program
DX: J02.9 Acute pharyngitis, unspecified (principal); Z20.822 Contact with and (suspected) exposure to COVID-19; Z20.828 Contact with and (suspected) exposure to other viral communicable diseases
CPT/HCPCS: 0241U; 87651; 99283; 99284

== ENCOUNTER 2023-04-18 23:12 | Emergency (ER) | payer OTHER, SELFPAY ==
[2023-04-18 23:20] VITALS: BP 139/81; PULSE 70; RESP 18; TEMP 36.3; O2SAT 98; BMI 19.4
[2023-04-18 23:52] VITALS: BP 133/82; PULSE 64; RESP 17; TEMP 37.2; O2SAT 99
--- NOTE | 2023-04-19 00:40 | ED_ITS ---
HPI - General Adult General Chief complaint: Ear Problems Stated complaint: Sore throat Time Seen by Provider: 04/18/23 23:55 Source: patient, RN notes reviewed and old records reviewed Mode of arrival: ambulatory Limitations: no limitations History of Present Illness HPI narrative: 37-year-old male presents for evaluation of a sore throat he states that his symptoms started 2 days ago he was seen here 8 o'clock this morning for the same complaint. He had a negative COVID test, negative strep test. He was treated with viscous lidocaine ultimately discharged home with Chloraseptic spray he reports that he has been able to tolerate soup and water all day but it hurts to the swallow solid foods. Patient reports that the in the past he was admitted due to being unable to swallow patient reports that his pain now radiates to his right ear Related Data Previous Rx's Medication Instructions Recorded amoxicillin 500 mg-potassium 1 tab PO BID #14 tabs 06/24/20 clavulanate 125 mg tablet (Augmentin) omeprazole 40 mg capsule,delayed 40 mg PO DAILY #30 caps 06/24/20 release docusate sodium 100 mg capsule 100 mg PO BID #30 caps 06/25/20 (Colace) nicotine 7 mg/24 hr daily 7 mg transdermal DAILY 28 days #28 06/25/20 transdermal patch ea oxycodone 5 mg tablet 5 mg PO Q3H PRN Pain, Moderate 06/25/20 (Pain Scale 4-6 7 days #30 tabs ketorolac 10 mg tablet 10 mg PO Q6H PRN pain 5 days #20 01/02/21 tabs cyclobenzaprine 10 mg tablet 10 mg PO TID PRN muscle spasm #14 09/21/21 tabs lidocaine 5 % topical patch 1 patch topical DAILY #15 ea 09/21/21 (Lidoderm) phenol 1.4 % mucosal aerosol spray 4 spray mucous membrane Q5H PRN 04/18/23 (Chloraseptic Throat [place]) sore throat #20 mL acetaminophen 120 mg-codeine 12 10 ml PO Q6H PRN pain #200 mL 04/19/23 mg/5 mL (5 mL) oral solution Allergies Allergy/AdvReac Type Severity Reaction Status Date / Time seafood Allergy Unknown Verified 09/16/21 20:45 Review of Systems Constitutional: Constitutional: Denies chills and Denies fever(s) ENT: Reports sore throat, Denies throat swelling and Denies tongue swelling Cardiovascular: Cardiovascular: Denies chest pain and Denies dyspnea Respiratory: Respiratory: Denies cough and Denies dyspnea Gastrointestinal: Gastrointestinal: Denies abdominal pain and Denies vomiting Allergic/Immunologic: Allergic/Immunologic: Denies throat swelling and Denies tongue swelling PMFSH Past Medical History Medical History Adopted Kidney stone Surgical History Status post gastric surgery History of ureter stent Family History Family History Mother No problems noted. Father No problems noted. Social History Social History Alcohol intake: current Alcohol intake frequency: a few times a week Alcohol type: hard liquor Patient Tobacco Use Status: Current everyday Tobacco user Cigarettes Per Day: 5 Substance Use Type: Marijuana Advance Directives: No Advance Directives Information Provided: Yes service: No Current occupational status: employed Physical Exam ED Vital Signs: Vital Signs - 24 hr 04/18/23 23:20 04/18/23 23:52 Temperature 97.3 F 99.0 F Pulse Rate 70 64 Respiratory Rate 18 17 Blood Pressure 139/81 133/82 Pulse Oximetry 98 99 Oxygen Delivery Method Room Air Room Air BMI result Body Mass Index 19.4 Const General: healthy appearing, comfortable, no acute distress, alert and awake Nutritional Appearance: well nourished Orientation/consciousness: patient oriented x3 HENMT Other: mildly erythematous oropharynx without edema or tonsillar hypertrophy. Airway is widely patent Head: Yes normocephalic and Yes atraumatic Ears: external ears normal, TM's normal bilaterally and EAC's normal Eyes Eyelids: Yes eyelids normal Conjunctivae: conjunctivae normal Sclerae: sclerae normal Corneas: corneas normal Pupils: Equal, round and reactive pupils present EOM: EOMs intact bilaterally Neck Neck: Yes full ROM Resp Effort & Inspection: normal respiratory effort, able to speak in complete sentences and not labored Skin General skin exam: elasticity normal Neuro General: patient oriented x3 Cranial nerves: Yes Equal, round and reactive pupils present and Yes Bilaterally intact EOM present Cognition (Neuro): normal cognition Extrem Other: Moving all extremities well without any obvious deformities Medical Decision Making Medical Decision Making MDM Narrative: 37-year-old male presents for evaluation of sore throat. He was diagnosed with pharyngitis earlier after a negative strep throat test and negative COVID test. He is able to tolerate p.o. but is just complaining of pain while doing so. His ear has no evidence of otitis media or otitis externa. Will continue treatment with symptomatic care only. I had initially planned to treat the patient with Toradol, however on review of his medical record he has a history of perforated gastric ulcer and will therefore avoid NSAIDs. Patient was given morphine 4 mg IM, he is not driving. His airway is widely patent Differential Diagnosis Differential Diagnoses: The differential diagnosis associated with the presentation includes pharyngitis strep pharyngitis tonsillitis viral syndrome upper respiratory infection Discharge Plan Discharge Clinical Impression: Pharyngitis Patient Disposition: Home, Self-Care Instructions: Pharyngitis (ED) Additional Instructions: you may continue the Chloraseptic spray that was previously prescribed you may use the Tylenol with codeine liquid as needed for severe pain. I would recommend sticking to liquids and soft foods for the next 3 days or until your symptoms resolve follow-up with your primary doctor Prescriptions: New acetaminophen-codeine 120 mg-12 mg /5 mL (5 mL) solution 10 ml PO Q6H PRN (Reason: pain) Qty: 200 0RF No Action omeprazole 40 mg capsule,delayed release(DR/EC) 40 mg PO DAILY Qty: 30 0RF amoxicillin-pot clavulanate [Augmentin] 500-125 mg tablet 1 tab PO BID Qty: 14 0RF nicotine 7 mg/24 hr Patch 24 Hour 7 mg transdermal DAILY 28 Days Qty: 28 1RF oxycodone 5 mg Tablet 5 mg PO Q3H PRN (Reason: Pain, Moderate (Pain Scale 4-6) 7 Days Qty: 30 0RF docusate sodium [Colace] 100 mg capsule 100 mg PO BID Qty: 30 1RF ketorolac 10 mg tablet 10 mg PO Q6H PRN (Reason: pain) 5 Days Qty: 20 0RF lidocaine [Lidoderm] 5 % adhesive patch,medicated 1 patch topical DAILY Qty: 15 0RF Rx Instructions: leave on most painful area for up to 12 hrs cyclobenzaprine 10 mg tablet 10 mg PO TID PRN (Reason: muscle spasm) Qty: 14 0RF Chloraseptic Throat [place] 1.4 % aerosol,spray 4 spray mucous membrane Q5H PRN (Reason: sore throat) Qty: 20 0RF
[2023-04-19] MEDS: Morphine Sulfate 4 MG/ML CARTRIDGE IM (00:55)
[2023-04-19 01:19] VITALS: BP 128/79; PULSE 81; RESP 16; TEMP 37.2; O2SAT 99
== END 2023-04-19 01:20 | disposition home or self-care (01) ==
PROVIDERS: Emergency Provider Internal Medicine
DX: J02.9 Acute pharyngitis, unspecified (principal); H92.01 Otalgia, right ear; F17.200 Nicotine dependence, unspecified, uncomplicated; F12.90 Cannabis use, unspecified, uncomplicated
CPT/HCPCS: 96372; 99284; J2270

== ENCOUNTER 2023-06-02 00:48 | Emergency (ER) | payer OTHER, SELFPAY ==
[2023-06-02 00:51] VITALS: BP 118/76; PULSE 72; O2SAT 97
[2023-06-02 01:06] VITALS: BP 102/65; PULSE 90; RESP 20; TEMP 36.6; O2SAT 96; BMI 19.7
--- NOTE | 2023-06-02 01:27 | PC.NURSE ---
pt biba from home reporting lower back pain. pt reports lifting heavy items for roommate when he felt his back give out. pt reports taking tylenol around 7pm and reports no relief. pt reports pain with movement, laying and sitting. pt denies bowel and urinary issues. pt unable to change into hospital gown due to being unable to move from pain.
--- NOTE | 2023-06-02 02:33 | ED.BACK ---
HPI - Back Pain/Injury General Chief Complaint: Back Pain/Injury Stated Complaint: lower back pain Time Seen by Provider: 06/02/23 02:33 Source: patient Mode of arrival: EMS Limitations: no limitations History of Present Illness HPI Narrative: 38-year-old male who presents emergency department for evaluation of severe lower back pain. Patient states that he was helping his friend lift a decorative chimney when he had severe sudden onset of pain in his left lower back. He states that the injury occurred around 18:00 hours and the pain is got progressively worse to the point where he is unable to stand. He states that any movement causes pain to be severe. The pain does not radiate down his leg. He denies numbness or weakness of his leg. He denied loss of bowel or bladder control. Related Data Previous Rx's Medication Instructions Recorded amoxicillin 500 mg-potassium 1 tab PO BID #14 tabs 06/24/20 clavulanate 125 mg tablet (Augmentin) omeprazole 40 mg capsule,delayed 40 mg PO DAILY #30 caps 06/24/20 release docusate sodium 100 mg capsule 100 mg PO BID #30 caps 06/25/20 (Colace) nicotine 7 mg/24 hr daily 7 mg transdermal DAILY 28 days #28 06/25/20 transdermal patch ea oxycodone 5 mg tablet 5 mg PO Q3H PRN Pain, Moderate 06/25/20 (Pain Scale 4-6 7 days #30 tabs ketorolac 10 mg tablet 10 mg PO Q6H PRN pain 5 days #20 01/02/21 tabs cyclobenzaprine 10 mg tablet 10 mg PO TID PRN muscle spasm #14 09/21/21 tabs lidocaine 5 % topical patch 1 patch topical DAILY #15 ea 09/21/21 (Lidoderm) phenol 1.4 % mucosal aerosol spray 4 spray mucous membrane Q5H PRN 04/18/23 (Chloraseptic Throat [place]) sore throat #20 mL acetaminophen 120 mg-codeine 12 10 ml PO Q6H PRN pain #200 mL 04/19/23 mg/5 mL (5 mL) oral solution oxycodone-acetaminophen 5 mg-325 1 tab PO Q4-6H PRN pain #3 tabs 04/19/23 mg tablet (Percocet) acetaminophen 500 mg tablet 1,000 mg (2 x 500 mg) PO Q6H PRN 06/02/23 (Tylenol Extra Strength) fever or pain #20 tabs cyclobenzaprine 10 mg tablet 10 mg PO TID PRN pain, muscle 06/02/23 spasm #15 tabs ibuprofen 400 mg tablet 400 mg PO TID PRN fever or pain 06/02/23 #30 tabs morphine 15 mg immediate release 15 mg PO Q6H PRN pain #10 tabs 06/02/23 tablet Allergies Allergy/AdvReac Type Severity Reaction Status Date / Time seafood Allergy Unknown Verified 06/02/23 01:08 Review of Systems Review of Systems: Yes all other systems are reviewed and are negative [facility] Past Medical History Attestation statement: The following information was validated with the patient. [facility] Narrative: Social history: Patient states he has a history of stomach ulcers, kidneys. Surgical history: She states he had operation stomach for his ulcers. Social history: He denies tobacco, alcohol use. He does smoke marijuana. Medical History Adopted Kidney stone Surgical History Status post gastric surgery History of ureter stent Family History Family History Mother No problems noted. Father No problems noted. Social History Social History Alcohol intake: current Alcohol intake frequency: a few times a month Alcohol type: beer Comment: sleeping Patient Tobacco Use Status: Current everyday Tobacco user Cigarettes Per Day: 5 Smoked in Last 30 Days: Yes Use of substances other than those prescribed or required for medical reasons: Yes Substance Use Type: Marijuana Advance Directives: No Advance Directives Information Provided: No service: No Current occupational status: employed Physical Exam Vital Signs: Vital Signs: Last Vital Signs Temp 98.4 F 06/02/23 06:19 Pulse 76 06/02/23 06:19 Resp 18 06/02/23 06:19 BP 128/75 06/02/23 06:19 Pulse Ox 98 06/02/23 06:19 O2 Del Method Room Air 06/02/23 06:19 BMI result Body Mass Index 19.7 Vital signs were normal Exam: General: Awake, alert , patient appears to be in distress secondary to his back pain Head: Normocephalic, atraumatic EENT: PERRL, Lids normal, sclera normal, conjunctiva normal, nose normal , ears normal, throat without erythema or exudates Neck: Supple, no adenopathy, no trachea midline or C-spine tenderness Lung: breath sounds symmetric, no wheezing, rales or rhonchi Chest: symmetric movement, nontender Heart: regular rate and rhythm, normal S1, S2 no murmurs or rubs Abdomen: soft, non-tender, nondistended, normal bowel sounds Back: Patient has moderate to severe tenderness palpation of the lumbar sacral paraspinal muscles on the left with spasm of these muscles. Patient has significant pain with straight leg raise bilaterally. Extremities: no deformities, moves all extremities symmetrically Neuro: Awake, alert, oriented, normal speech, cranial nerves intact, moves all extremities symmetrically Medications Administered Discontinued Medications Generic Name Dose Route Start Last Admin Trade Name Freq PRN Reason Stop Dose Admin Cyclobenzaprine HCl 5 mg 06/02/23 02:39 06/02/23 02:48 Cyclobenzaprine Hcl 5 Mg Tablet PO 06/02/23 02:40 5 mg ONCE ONE Administration Cyclobenzaprine HCl 10 mg 06/02/23 05:30 06/02/23 06:27 Cyclobenzaprine Hcl 10 Mg Tablet PO 06/02/23 05:31 10 mg ONCE ONE Administration Diphenhydramine HCl 50 mg 06/02/23 02:39 06/02/23 02:49 Diphenhydramine Hcl 50 Mg/Ml Vial IVPUSH 06/02/23 02:40 50 mg ONCE STA Administration Hydromorphone HCl 1 mg 06/02/23 02:39 06/02/23 02:49 Hydromorphone Hcl 1 Mg/Ml Syringe IVPUSH 06/02/23 02:40 1 mg ONCE STA Administration Protocol Hydromorphone HCl 1 mg 06/02/23 04:37 06/02/23 04:51 Hydromorphone Hcl 1 Mg/Ml Syringe IVPUSH 06/02/23 04:38 1 mg ONCE STA Administration Protocol Hydromorphone HCl 1 mg 06/02/23 05:30 06/02/23 06:26 Hydromorphone Hcl 1 Mg/Ml Syringe IVPUSH 06/02/23 05:31 1 mg ONCE STA Administration Protocol Sodium Chloride 1,000 mls @ 999 mls/hr 06/02/23 02:39 06/02/23 03:49 Ns IV 06/02/23 03:39 Infused .Q1H1M STA Infusion Medical Decision Making Medical Decision Making [facility] [place] Narrative: 38-year-old male who presents emergency department for evaluation of severe pain that started around 18:00 hours yesterday when he help lift a decorative chimney, pain got progressively worse to the point where he is unable to move her stand secondary to the pain. On presentation the patient did have significant tenderness palpation of his paraspinal muscles in the lumbar sacral area with spasm of these muscles. He also had pain with straight leg raises bilaterally. 07:28 The patient had significant pain with spasm. He was treated with Dilaudid 1 mg IV x3 doses, diphenhydramine 50 mg IV, cyclobenzaprine 5 mg orally and 10 mg orally Patient is feeling better at this time, he is able to stand and walk. Patient will be discharged home. He was advised to take Tylenol and ibuprofen for pain and for pain not relieved by these medications he was prescribed morphine. She was also prescribe cyclobenzaprine for his spasm Differential Diagnosis Differential Diagnoses: The differential diagnosis associated with the presentation includes Differential diagnosis includes but is not limited to musculoskeletal strain, disc disease, Admission/Observation Consideration of admission/observation: Escalation of care including admission/observation considered External Record Review External record reviewed: Other ([place] prescription monitoring program revealed 1 prescription for oxycodone 03/2023) Prescription Management I considered prescription management with: Pain Medication Discharge Plan Discharge Clinical Impression: Lumbar strain Qualifiers: Encounter type: initial encounter Qualified Code(s): S39.012A - Strain of muscle, fascia and tendon of lower back, initial encounter Patient Disposition: Home, Self-Care Instructions: Acute Low Back Pain (ED) Additional Instructions: Your presentation examination is consistent with muscle sprain of your lower back muscles and spasm of your muscles. Take ibuprofen 200 mg pills, 3 pills every 6 hours as needed for pain. Take Tylenol (acetaminophen) 2 pills every 4-6 hours as needed for pain. For pain not relieved by ibuprofen or Tylenol take morphine 15 mg pills, 1 pill every 4 hours as needed for pain. This medication will make you sleepy, do not drive or work while taking this medication. Morphine is a narcotic medication and can be addicting. If you are concerned about addiction you can ask the pharmacist for less pills or do not get this prescription filled. Take Flexeril (cyclobenzaprine) 10 mg pills, 1 pill every 6-8 hours as needed for pain or spasm. This medication will make you sleepy. Do not drive or work while taking this medication. Apply ice for 15 minutes 4 to 6 times a day to your lower back, do this for 2 days then after 2 days you can use a heating pad on low. Follow-up with your doctor in 2 days. Please return to the emergency department if your symptoms get worse or if you develop any symptoms that are concerning to you. Prescriptions: New cyclobenzaprine 10 mg tablet 10 mg PO TID PRN (Reason: pain, muscle spasm) Qty: 15 0RF acetaminophen [Tylenol Extra Strength] 500 mg tablet 1,000 mg PO Q6H PRN (Reason: fever or pain) Qty: 20 0RF ibuprofen 400 mg tablet 400 mg PO TID PRN (Reason: fever or pain) Qty: 30 0RF morphine 15 mg tablet 15 mg PO Q6H PRN (Reason: pain) Qty: 10 0RF Rx Instructions: The patient may ask for partial fill; Partial Fill upon patient request. No Action omeprazole 40 mg capsule,delayed release(DR/EC) 40 mg PO DAILY Qty: 30 0RF amoxicillin-pot clavulanate [Augmentin] 500-125 mg tablet 1 tab PO BID Qty: 14 0RF nicotine 7 mg/24 hr Patch 24 Hour 7 mg transdermal DAILY 28 Days Qty: 28 1RF oxycodone 5 mg Tablet 5 mg PO Q3H PRN (Reason: Pain, Moderate (Pain Scale 4-6) 7 Days Qty: 30 0RF docusate sodium [Colace] 100 mg capsule 100 mg PO BID Qty: 30 1RF ketorolac 10 mg tablet 10 mg PO Q6H PRN (Reason: pain) 5 Days Qty: 20 0RF lidocaine [Lidoderm] 5 % adhesive patch,medicated 1 patch topical DAILY Qty: 15 0RF Rx Instructions: leave on most painful area for up to 12 hrs cyclobenzaprine 10 mg tablet 10 mg PO TID PRN (Reason: muscle spasm) Qty: 14 0RF Chloraseptic Throat [place] 1.4 % aerosol,spray 4 spray mucous membrane Q5H PRN (Reason: sore throat) Qty: 20 0RF acetaminophen-codeine 120 mg-12 mg /5 mL (5 mL) solution 10 ml PO Q6H PRN (Reason: pain) Qty: 200 0RF oxycodone-acetaminophen [Percocet] 5-325 mg tablet 1 tab PO Q4-6H PRN (Reason: pain) Qty: 3 0RF Rx Instructions: Partial Fill upon patient request.
--- NOTE | 2023-06-02 02:45 | PC.NURSE ---
IV access established at this time. 20G placed in left ac.
[2023-06-02] MEDS: Cyclobenzaprine HCl 5 MG TABLET PO (02:48)
[2023-06-02] MEDS: 0.9 % Sodium Chloride 1,000 ML 999 ML IV (02:48)
[2023-06-02] MEDS: HYDROmorphone HCl 1 MG/ML SYRINGE IVPUSH ×3 (02:49→06:26)
[2023-06-02] MEDS: diphenhydrAMINE HCL 50 MG/ML VIAL IVPUSH (02:49)
--- NOTE | 2023-06-02 02:53 | PC.NURSE ---
pt medicated per aug for 10/10 lower back pain.
[2023-06-02 03:42] VITALS: BP 122/75; PULSE 77; RESP 16; TEMP 36.7; O2SAT 97
--- NOTE | 2023-06-02 04:51 | PC.NURSE ---
pt medicated per aug for 10/10 lower back pain.
--- NOTE | 2023-06-02 05:18 | PC.NURSE ---
While sitting in triage, this RN noted that this patient exited the bathroom across from ED 3 in a wheelchair, then proceeded to lower himself to the floor. No fall was witnessed, and this RN saw the entire event occur. Pt was assisted back into wheelchair by this RN and primary RN for pt, then returned to stretcher without incident. MD was notified of event.
--- NOTE | 2023-06-02 05:20 | PC.NURSE ---
around 0520 this rn was notified by Triage Nurse Simon DUQUE that pt was seen leaving bathroom across from room three in a wheel chair and proceeded to lower self to floor. Simon DUQUE indicated that he saw the entire incident and no fall occurred. this RN proceeded to assist Simon DUQUE with transfer back into wheelchair and then back into ED stretcher without incident. no injuries occurred, pt had no new complaints, and stated he lowered himself to the floor. MD notified, no further orders at this time.
[2023-06-02 06:19] VITALS: BP 128/75; PULSE 76; RESP 18; TEMP 36.9; O2SAT 98
[2023-06-02] MEDS: Cyclobenzaprine HCl 10 MG TABLET PO (06:27)
--- NOTE | 2023-06-02 06:27 | PC.NURSE ---
pt medicated per aug for 10/10 lower back pain.
--- NOTE | 2023-06-02 07:37 | PC.NURSE ---
patient ambulatory to bathroom, steady gait
== END 2023-06-02 07:41 | disposition home or self-care (01) ==
PROVIDERS: Emergency Provider Emergency Medicine Emergency Medical Services
DX: S39.012A Strain of muscle, fascia and tendon of lower back, initial encounter (principal); M79.605 Pain in left leg; M79.604 Pain in right leg; R11.2 Nausea with vomiting, unspecified; F17.210 Nicotine dependence, cigarettes, uncomplicated; X50.0XXA Overexertion from strenuous movement or load, initial encounter; Y93.9 Activity, unspecified; Y92.9 Unspecified place or not applicable; Y99.9 Unspecified external cause status; Z71.6 Tobacco abuse counseling; Z79.899 Other long term (current) drug therapy
CPT/HCPCS: 96361; 96374; 96376; 99284; 99285; J1170; J1200